=== PATIENT | female | born 1945 | race Caucasian/White ===

== ENCOUNTER → 2017-04-08 | Outpatient (CLI) | payer MEDICARE, OTHER ==
[2017-04-11 00:08] LABS: QUANTIFERON GOLD TB Negative (Negative); TB Test (QFT) Antigen 0.01 IU/mL (.); TB Test (QFT) Mitogen >10.00 IU/mL (.); TB Test (QFT) Nil 0.01 IU/mL (.)
== END ==
LOC: M SMT 11:28
DX: R04.2 Hemoptysis (principal)
CPT/HCPCS: 36415

== ENCOUNTER → 2017-05-22 | Outpatient (CLI) | payer MEDICARE, OTHER | LOC: M RAD 07:47 | DX: R91.8 Other nonspecific abnormal finding of lung field (principal) | CPT/HCPCS: 71250 ==

== ENCOUNTER → 2017-06-19 | Outpatient (CLI) | payer MEDICARE, OTHER ==
[~2017-06-19] MED LIST: ACETAMINOPHEN 325 MG TAB As Ordered; LIDOCAINE 1% MDV 20ML VIAL As Ordered
== END ==
LOC: M RADPRO 08:20
DX: J98.4 Other disorders of lung (principal)
CPT/HCPCS: 32405

== ENCOUNTER → 2017-07-22 | Outpatient (CLI) | payer MEDICARE, OTHER | LOC: M RAD 08:44 | DX: R91.8 Other nonspecific abnormal finding of lung field (principal) | CPT/HCPCS: 71250 ==

== ENCOUNTER → 2017-08-06 | Outpatient (CLI) | payer MEDICARE, OTHER ==
[2017-08-06 18:21] LABS: PROTHROMBIN TIME 33.4 SECONDS (12.4-14.5)
[2017-08-06 18:22] LABS: PARTIAL THROMBOPLASTIN TIME 47.7 SECONDS (26.8-37.9)
== END ==
LOC: M SMT 13:03
DX: Z79.01 Long term (current) use of anticoagulants (principal); R91.8 Other nonspecific abnormal finding of lung field
CPT/HCPCS: 85610

== ENCOUNTER → 2017-08-19 | Outpatient (CLI) | payer MEDICARE, OTHER ==
[2017-08-19 13:15] LABS: INR 1.26; PROTHROMBIN TIME 16.1 SECONDS (12.4-14.5)
[2017-08-19 13:16] LABS: PARTIAL THROMBOPLASTIN TIME 36.1 SECONDS (26.8-37.9)
== END ==
LOC: M SMT 09:18
DX: Z01.812 Encounter for preprocedural laboratory examination (principal); Z79.01 Long term (current) use of anticoagulants
CPT/HCPCS: 85610

== ENCOUNTER 2017-08-20 06:09 | Day surgery (SDC) | payer MEDICARE, OTHER ==
[2017-08-20 07:01] LABS: INR 1.15; PROTHROMBIN TIME 14.9 SECONDS (12.4-14.5)
[2017-08-20] MEDS ORDERED: fentaNYL 100 MCG/2 ML INJECTION (J3010) As Ordered (07:03)
[2017-08-20] MEDS ORDERED: dexameTHASONE 4 MG/ML 1ML VIAL (J1100) As Ordered (07:03)
[2017-08-20] MEDS ORDERED: ROCURONIUM BROMIDE 50 MG/5 ML VIAL As Ordered (07:03)
[2017-08-20] MEDS ORDERED: PROPOFOL 200 MG/20 ML VIAL As Ordered (07:03)
[2017-08-20] MEDS ORDERED: ONDANSETRON 4MG/2ML VIAL (J2405) As Ordered (07:03)
[2017-08-20] MEDS ORDERED: LIDOCAINE 2% INJ 100 MG/5 ML SDV (FOR ANES.) As Ordered (07:03)
[2017-08-20] MEDS ORDERED: MIDAZOLAM INJ 2 MG/2 ML VIAL (J2250) As Ordered (07:04)
[2017-08-20] MEDS ORDERED: GLYCOPYRROLATE INJ 0.2 MG/ML 2 ML VIAL As Ordered (07:05)
[2017-08-20] MEDS ORDERED: NEOSTIGMINE 10 MG/10 ML VIAL (J2710) As Ordered (07:05)
[2017-08-20] MEDS ORDERED: KETOROLAC 60 MG/2 ML VIAL (J1885) As Ordered (07:11)
[2017-08-20] MEDS: LR 1,000 ML IV (07:19)
[2017-08-20 07:21] LABS: BEDSIDE GLUCOSE 167 MG/DL (80-115)
[2017-08-20] MEDS: CETACAINE SPRAY 5GM As Ordered (07:59)
[2017-08-20] MEDS: THROMBIN SOLN 5,000 UNITS VIAL As Ordered (08:41)
[2017-08-20] MEDS: LIDOCAINE VISCOUS 2% SOLN 15ML UDC As Ordered (08:42)
[2017-08-20] MEDS: LIDOCAINE 4% TOPICAL SOLN 50 ML BTL As Ordered (08:42)
[2017-08-20] MEDS: EPINEPHrine 1MG/10ML SYRINGE 1.5IN As Ordered (08:42)
[2017-08-20] MEDS: LIDOCAINE 1% SDV INJ 30 ML VIAL As Ordered (08:42)
[2017-08-20] MEDS ORDERED: PERCOCET 5MG/325MG TAB PO (09:00)
[2017-08-20] MEDS ORDERED: fentaNYL 100 MCG/2 ML INJECTION (J3010) IV (09:00)
[2017-08-20] MEDS ORDERED: LR 1,000 ML IV (09:00)
[2017-08-20] MEDS ORDERED: ONDANSETRON 4MG/2ML VIAL (J2405) IV (09:00)
== END 2017-08-20 10:24 | disposition home or self-care (01) ==
LOC: M SDC 06:09
DX: R91.1 Solitary pulmonary nodule (principal); R04.2 Hemoptysis; I10 Essential (primary) hypertension; M12.9 Arthropathy, unspecified; E03.9 Hypothyroidism, unspecified; E78.5 Hyperlipidemia, unspecified; M48.00 Spinal stenosis, site unspecified; E55.9 Vitamin D deficiency, unspecified; K21.9 Gastro-esophageal reflux disease without esophagitis; E11.9 Type 2 diabetes mellitus without complications; I83.93 Asymptomatic varicose veins of bilateral lower extremities; I49.9 Cardiac arrhythmia, unspecified; R06.02 Shortness of breath; Z88.1 Allergy status to other antibiotic agents; Z88.5 Allergy status to narcotic agent; Z88.6 Allergy status to analgesic agent; Z88.8 Allergy status to other drugs, medicaments and biological substances; Z79.899 Other long term (current) drug therapy; Z79.82 Long term (current) use of aspirin; Z79.84 Long term (current) use of oral hypoglycemic drugs; Z79.01 Long term (current) use of anticoagulants; Z86.718 Personal history of other venous thrombosis and embolism; Z90.710 Acquired absence of both cervix and uterus; Z96.651 Presence of right artificial knee joint; Z95.0 Presence of cardiac pacemaker; Z98.51 Tubal ligation status
CPT/HCPCS: 31629

== ENCOUNTER → 2017-09-22 | Outpatient (CLI) | payer MEDICARE, OTHER | LOC: M PLARAD 11:53 | DX: C34.11 Malignant neoplasm of upper lobe, right bronchus or lung (principal) | CPT/HCPCS: 78815 ==

== ENCOUNTER → 2017-10-28 | Outpatient (CLI) | payer MEDICARE, OTHER | LOC: M RAD 06:52 | DX: R91.1 Solitary pulmonary nodule (principal); R91.8 Other nonspecific abnormal finding of lung field; Z95.0 Presence of cardiac pacemaker; K76.9 Liver disease, unspecified | CPT/HCPCS: 71046 ==

== ENCOUNTER → 2017-10-28 | Outpatient (CLI) | payer MEDICARE, OTHER ==
[2017-10-28 10:07] LABS: ABG BASE EXCESS 0.2 (-2.0-2.0); ABG DEVICE ROOM AIR; ABG HCO3 23.3 MEQ/L (22.0-26.0); ABG PARTIAL PRESSURE CO2 33.8 mmHg (35.0-45.0); ABG STANDARD HCO3 24.6 MEQ/L (22.0-26.0); ABG TOTAL CO2 24.4 MEQ/L (23.0-31.0); ABG pH (ARTERIAL) 7.457 UNITS (7.350-7.450)
[2017-10-28 10:11] LABS: HEMATOCRIT 45.7 % (36.0-47.0); MEAN CORPUSCULAR HEMOGLOBIN 27.5 pg (27.0-33.0); MEAN CORPUSCULAR HGB CONC 32.8 g/dl (32.0-36.5); MEAN CORPUSCULAR VOLUME 83.9 fl (80.0-96.0); PLATELET COUNT, AUTOMATED 201 10^3/uL (150-450); RED BLOOD COUNT 5.45 10^6/uL (4.00-5.40); WHITE BLOOD COUNT 6.7 10^3/uL (4.0-10.0)
[2017-10-28 10:17] LABS: APPEARANCE, URINE CLEAR (CLEAR); BACTERIA, URINE AUTO NEGATIVE (NEGATIVE); BILIRUBIN, URINE AUTO NEGATIVE (NEGATIVE); BLOOD, URINE BLOOD NEGATIVE (NEGATIVE); COLOR, URINE YELLOW (YELLOW); GLUCOSE, URINE (UA) AUTO NEGATIVE (NEGATIVE); KETONE, URINE AUTO NEGATIVE (NEGATIVE); LEUKOCYTE ESTERASE, URINE AUTO NEGATIVE (NEGATIVE); MUCUS, URINE SMALL (NEGATIVE); NITRITE, URINE AUTO NEGATIVE (NEGATIVE); PROTEIN, URINE AUTO NEGATIVE (NEGATIVE); RBC, URINE AUTO 3 /HPF (0-3); SPECIFIC GRAVITY URINE AUTO 1.017 (1.002-1.035); SQUAMOUS EPITHELIAL CELL UR AU 1 /HPF (0-6); UROBILINOGEN, URINE AUTO 0.2 mg/dL (0.0-2.0); WBC, URINE AUTO 1 /HPF (0-3)
[2017-10-28 10:25] LABS: INR 2.29; PROTHROMBIN TIME 25.7 SECONDS (12.1-14.4)
[2017-10-28 10:32] LABS: ANION GAP 10 MEQ/L (8-16); BLOOD UREA NITROGEN 16 MG/DL (7-18); CALCIUM LEVEL 9.1 MG/DL (8.8-10.2); CARBON DIOXIDE LEVEL 30 MEQ/L (21-32); CHLORIDE LEVEL 101 MEQ/L (98-107); CREATININE FOR GFR 0.82 MG/DL (0.55-1.30); GLOMERULAR FILTRATION RATE > 60.0 (>45); GLUCOSE, FASTING 159 MG/DL (70-100); POTASSIUM SERUM 3.6 MEQ/L (3.5-5.1); SODIUM LEVEL 141 MEQ/L (136-145)
== END ==
LOC: M ADMPAT 08:19
DX: R91.1 Solitary pulmonary nodule (principal); R91.8 Other nonspecific abnormal finding of lung field; Z95.0 Presence of cardiac pacemaker

== ENCOUNTER 2017-11-02 05:42 | Inpatient (IN) | payer MEDICARE, OTHER ==
[2017-11-02] MEDS: LR 1,000 ML IV ×2 (06:40→14:45)
[2017-11-02 06:47] LABS: PROTHROMBIN TIME 15.4 SECONDS (12.1-14.4)
[2017-11-02] MEDS ORDERED: MIDAZOLAM INJ 2 MG/2 ML VIAL (J2250) As Ordered ×2 (06:50→06:52)
[2017-11-02] MEDS ORDERED: fentaNYL 100 MCG/2 ML INJECTION (J3010) As Ordered ×5 (06:50→12:26)
[2017-11-02 06:51] LABS: BEDSIDE GLUCOSE 149 MG/DL (80-115)
[2017-11-02] MEDS ORDERED: ROCURONIUM BROMIDE 50 MG/5 ML VIAL As Ordered ×2 (06:52→09:27)
[2017-11-02] MEDS ORDERED: LIDOCAINE 2% INJ 100 MG/5 ML SDV (FOR ANES.) As Ordered (06:52)
[2017-11-02] MEDS ORDERED: PROPOFOL 200 MG/20 ML VIAL As Ordered (06:52)
[2017-11-02] MEDS: MIDAZOLAM INJ 2 MG/2 ML VIAL (J2250) IV (07:10)
[2017-11-02] MEDS: fentaNYL 100 MCG/2 ML INJECTION (J3010) IV (07:10)
[2017-11-02] MEDS: CETACAINE SPRAY 5GM As Ordered (07:48)
[2017-11-02] MEDS: MUPIROCIN 2% OINT 22 GM TUBE TOP (07:51)
[2017-11-02] MEDS ORDERED: fentaNYL 250 MCG/5 ML INJECTION (J3010) As Ordered (08:35)
[2017-11-02] MEDS ORDERED: dexameTHASONE 4 MG/ML 1ML VIAL (J1100) As Ordered ×2 (09:13)
[2017-11-02] MEDS ORDERED: ONDANSETRON 4MG/2ML VIAL (J2405) As Ordered (09:14)
[2017-11-02] MEDS ORDERED: EPIDURAL/PCA KEYS XX (09:30)
[2017-11-02] MEDS ORDERED: WALLBOXKEY XX (09:30)
[2017-11-02] MEDS ORDERED: ONDANSETRON 4MG/2ML VIAL (J2405) IV ×3 (09:30→14:45)
[2017-11-02] MEDS ORDERED: NALOXONE INJ 0.4 MG/1 ML VIAL (J2310) IV (09:30)
[2017-11-02] MEDS ORDERED: diphenhydrAMINE INJ 50MG/ML VIAL (J1200) IV (09:30)
[2017-11-02] MEDS ORDERED: METOCLOPRAMIDE INJ 10MG/2ML VIAL (J2765) IV (09:30)
[2017-11-02] MEDS ORDERED: DESFLURANE 240 ML INHALANT As Ordered (11:38)
[2017-11-02] MEDS ORDERED: BUPIVACAINE HCL 0.25% 30 ML VIAL As Ordered (12:16)
[2017-11-02] MEDS: BUPIVACAINE LIPOSOME/PF 1.3% 20 ML VIAL (13.3MG/ML)(EXPAREL) As Ordered (13:01)
[2017-11-02] MEDS: BUPIVACAINE HCL 0.5% 10 ML VIAL As Ordered (13:01)
[2017-11-02] MEDS ORDERED: GLUCOSE 4 GM CHEW TABLET PO (13:15)
[2017-11-02] MEDS ORDERED: GLUCAGON FOR INJ 1 MG VIAL (J1610) SC (13:15)
[2017-11-02] MEDS ORDERED: NORCO, ANEXSIA 5/325MG TABLET (HYDROcodone/ACETAMINOPHEN) PO (13:15)
[2017-11-02] MEDS ORDERED: DEXTROSE 50% 50 ML SYRINGE IV (13:15)
[2017-11-02] MEDS ORDERED: BISACODYL 10 MG SUPP PR (13:15)
[2017-11-02] MEDS: FENTANYL/BUPIVACAINE/NACL BAG 250 ML EPIDURAL (13:35)
[2017-11-02] MEDS: LEVALBUTEROL 1.25 MG/0.5 ML CONCENTRATE NEB NEB ×2 (13:35→20:02)
[2017-11-02 13:46] LABS: ABG BASE EXCESS -4.2 (-2.0-2.0); ABG O2 SATURATION 98.1 % (95.0-99.0); ABG PARTIAL PRESSURE CO2 44.2 mmHg (35.0-45.0); ABG PARTIAL PRESSURE O2 111.4 mmHg (75.0-100.0); ABG STANDARD HCO3 21.1 MEQ/L (22.0-26.0); ABG TOTAL CO2 23.4 MEQ/L (23.0-31.0); ABG pH (ARTERIAL) 7.315 UNITS (7.350-7.450)
[2017-11-02 13:48] LABS: BASO # 0.1 10^3/uL (0.0-0.2); BASO % 0.3 % (0.0-1.0); EOS % 0.1 % (0.0-3.0); HEMOGLOBIN 14.8 g/dl (12.0-15.5); IMMATURE GRANULOCYTE % 0.9 % (0-3.0); LYMPH # 0.9 10^3/uL (1.5-4.5); LYMPH % 5.6 % (24.0-44.0); MEAN CORPUSCULAR HEMOGLOBIN 27.5 pg (27.0-33.0); MEAN CORPUSCULAR HGB CONC 32.2 g/dl (32.0-36.5); MEAN CORPUSCULAR VOLUME 85.5 fl (80.0-96.0); MONO # 0.5 10^3/uL (0.0-0.8); MONO % 3.2 % (0.0-5.0); NEUTROPHILS # 14.5 10^3/uL (1.8-7.7); NEUTROPHILS % 89.9 % (36.0-66.0); PLATELET COUNT, AUTOMATED 204 10^3/uL (150-450); RED BLOOD COUNT 5.38 10^6/uL (4.00-5.40); RED CELL DISTRIBUTION WIDTH 16.1 % (11.5-14.5); WHITE BLOOD COUNT 16.1 10^3/uL (4.0-10.0)
[2017-11-02] MEDS ORDERED: KETOROLAC 30 MG/ML VIAL (J1885) As Ordered (13:55)
[2017-11-02] MEDS: KETOROLAC 30 MG/ML VIAL (J1885) IV ×2 (14:05→19:52)
[2017-11-02 14:10] LABS: BEDSIDE GLUCOSE 239 MG/DL (80-115)
[2017-11-02] MEDS ORDERED: HumaLOG INSULIN (NovoLOG) PER UNIT As Ordered (14:11)
[2017-11-02] MEDS: HumaLOG INSULIN (NovoLOG) PER UNIT SC ×2 (14:12→17:54)
[2017-11-02 14:16] LABS: ANION GAP 11 MEQ/L (8-16); BLOOD UREA NITROGEN 19 MG/DL (7-18); CALCIUM LEVEL 8.5 MG/DL (8.8-10.2); CARBON DIOXIDE LEVEL 24 MEQ/L (21-32); CHLORIDE LEVEL 104 MEQ/L (98-107); CREATININE FOR GFR 0.88 MG/DL (0.55-1.30); GLOMERULAR FILTRATION RATE > 60.0 (>45); GLUCOSE, FASTING 221 MG/DL (70-100); POTASSIUM SERUM 4.5 MEQ/L (3.5-5.1); SODIUM LEVEL 139 MEQ/L (136-145)
[2017-11-02] MEDS: KCL 20MEQ IN D5/NS 1000ML 1,000 ML IV (14:40)
[2017-11-02] MEDS ORDERED: fentaNYL 100 MCG/2 ML INJECTION (J3010) IV (14:45)
[2017-11-02] MEDS ORDERED: LEVALBUTEROL 1.25 MG/0.5 ML CONCENTRATE NEB As Ordered (16:16)
[2017-11-02] MEDS: ceFAZolin SOD 1 GM in D5W MINI-BAG PLUS 50 ML IV ×2 (16:21→23:09)
[2017-11-02 17:50] LABS: BEDSIDE GLUCOSE 225 MG/DL (80-115)
[2017-11-02] MEDS ORDERED: metFORMIN (GLUCOPHAGE) 500 MG TAB PO (18:00)
[2017-11-02] MEDS: HEPARIN SOD (PORCINE) 5000 UNITS/ML VIAL SC (20:17)
[2017-11-02] MEDS: DOCUSATE SODIUM 100 MG CAP PO (20:17)
[2017-11-02] MEDS: METOPROLOL TART 25 MG TABLET PO (20:18)
[2017-11-02 20:59] LABS: BEDSIDE GLUCOSE 208 MG/DL (80-115)
[2017-11-03] MEDS: KETOROLAC 30 MG/ML VIAL (J1885) IV ×4 (01:14→20:55)
[2017-11-03] MEDS: LEVALBUTEROL 1.25 MG/0.5 ML CONCENTRATE NEB NEB ×4 (02:48→18:18)
[2017-11-03] MEDS: KCL 20MEQ IN D5/NS 1000ML 1,000 ML IV (03:09)
[2017-11-03 04:34] LABS: BASO % 0.2 % (0.0-1.0); EOS % 0.3 % (0.0-3.0); HEMATOCRIT 41.1 % (36.0-47.0); IMMATURE GRANULOCYTE % 0.5 % (0-3.0); LYMPH # 1.4 10^3/uL (1.5-4.5); LYMPH % 12.9 % (24.0-44.0); MEAN CORPUSCULAR HEMOGLOBIN 27.4 pg (27.0-33.0); MEAN CORPUSCULAR HGB CONC 31.6 g/dl (32.0-36.5); MEAN CORPUSCULAR VOLUME 86.7 fl (80.0-96.0); MONO # 1.1 10^3/uL (0.0-0.8); MONO % 10.2 % (0.0-5.0); NEUTROPHILS # 8.4 10^3/uL (1.8-7.7); NEUTROPHILS % 75.9 % (36.0-66.0); PLATELET COUNT, AUTOMATED 177 10^3/uL (150-450); RED BLOOD COUNT 4.74 10^6/uL (4.00-5.40); RED CELL DISTRIBUTION WIDTH 16.1 % (11.5-14.5)
[2017-11-03 04:47] LABS: ANION GAP 8 MEQ/L (8-16); BLOOD UREA NITROGEN 27 MG/DL (7-18); CALCIUM LEVEL 7.9 MG/DL (8.8-10.2); CARBON DIOXIDE LEVEL 26 MEQ/L (21-32); CHLORIDE LEVEL 107 MEQ/L (98-107); CREATININE FOR GFR 0.74 MG/DL (0.55-1.30); GLOMERULAR FILTRATION RATE > 60.0 (>45); GLUCOSE, FASTING 150 MG/DL (70-100); POTASSIUM SERUM 4.2 MEQ/L (3.5-5.1); SODIUM LEVEL 141 MEQ/L (136-145)
[2017-11-03] MEDS: LEVOTHYROXINE 75MCG TABLET (0.075MG) PO (05:29)
[2017-11-03 05:57] LABS: ABG BASE EXCESS -1.5 (-2.0-2.0); ABG HCO3 23.5 MEQ/L (22.0-26.0); ABG O2 SATURATION 96.7 % (95.0-99.0); ABG PARTIAL PRESSURE CO2 40.4 mmHg (35.0-45.0); ABG PARTIAL PRESSURE O2 85.5 mmHg (75.0-100.0); ABG STANDARD HCO3 23.2 MEQ/L (22.0-26.0); ABG TOTAL CO2 24.7 MEQ/L (23.0-31.0); ABG pH (ARTERIAL) 7.382 UNITS (7.350-7.450)
[2017-11-03 08:40] LABS: BEDSIDE GLUCOSE 128 MG/DL (80-115)
[2017-11-03] MEDS: HEPARIN SOD (PORCINE) 5000 UNITS/ML VIAL SC ×2 (08:50→20:57)
[2017-11-03] MEDS: HumaLOG INSULIN (NovoLOG) PER UNIT SC ×3 (08:50→17:16)
[2017-11-03] MEDS: ceFAZolin SOD 1 GM in D5W MINI-BAG PLUS 50 ML IV ×2 (08:50→15:43)
[2017-11-03] MEDS: MOM 30ML SUSPENSION UDC PO (08:50)
[2017-11-03] MEDS: METOPROLOL TART 25 MG TABLET PO ×2 (08:51→20:58)
[2017-11-03] MEDS: PANTOPRAZOLE 40MG TAB (PROTONIX) PO (08:51)
[2017-11-03] MEDS: DOCUSATE SODIUM 100 MG CAP PO ×2 (08:51→20:57)
[2017-11-03] MEDS: POTASSIUM CHLORIDE 10 MEQ SR TABLET PO (08:52)
[2017-11-03] MEDS: ASPIRIN 81 MG ENTERIC TAB PO (08:52)
[2017-11-03] MEDS: metFORMIN (GLUCOPHAGE) 500 MG TAB PO ×2 (08:52→17:16)
[2017-11-03 12:18] LABS: BEDSIDE GLUCOSE 156 MG/DL (80-115)
[2017-11-03] MEDS: FENTANYL/BUPIVACAINE/NACL BAG 250 ML EPIDURAL (14:22)
[2017-11-03 17:14] LABS: BEDSIDE GLUCOSE 165 MG/DL (80-115)
[2017-11-03] MEDS: ACETAMINOPHEN TAB 650MG DOSE (2X325MG) PO (20:57)
[2017-11-04] MEDS: ceFAZolin SOD 1 GM in D5W MINI-BAG PLUS 50 ML IV ×2 (00:30→09:08)
[2017-11-04] MEDS: LEVALBUTEROL 1.25 MG/0.5 ML CONCENTRATE NEB NEB ×5 (02:00→20:38)
[2017-11-04] MEDS: KETOROLAC 30 MG/ML VIAL (J1885) IV ×4 (02:45→20:53)
[2017-11-04 05:11] LABS: BASO % 0.4 % (0.0-1.0); EOS # 0.2 10^3/uL (0.0-0.50); HEMATOCRIT 39.9 % (36.0-47.0); HEMOGLOBIN 12.5 g/dl (12.0-15.5); IMMATURE GRANULOCYTE % 0.5 % (0-3.0); LYMPH # 1.9 10^3/uL (1.5-4.5); LYMPH % 19.5 % (24.0-44.0); MEAN CORPUSCULAR HEMOGLOBIN 27.7 pg (27.0-33.0); MEAN CORPUSCULAR HGB CONC 31.3 g/dl (32.0-36.5); MEAN CORPUSCULAR VOLUME 88.5 fl (80.0-96.0); MONO # 1.1 10^3/uL (0.0-0.8); MONO % 11.1 % (0.0-5.0); NEUTROPHILS # 6.5 10^3/uL (1.8-7.7); NEUTROPHILS % 66.5 % (36.0-66.0); PLATELET COUNT, AUTOMATED 132 10^3/uL (150-450); RED BLOOD COUNT 4.51 10^6/uL (4.00-5.40); RED CELL DISTRIBUTION WIDTH 16.5 % (11.5-14.5); WHITE BLOOD COUNT 9.8 10^3/uL (4.0-10.0)
[2017-11-04 05:26] LABS: ANION GAP 7 MEQ/L (8-16); BLOOD UREA NITROGEN 26 MG/DL (7-18); CALCIUM LEVEL 7.8 MG/DL (8.8-10.2); CARBON DIOXIDE LEVEL 28 MEQ/L (21-32); CHLORIDE LEVEL 105 MEQ/L (98-107); GLOMERULAR FILTRATION RATE > 60.0 (>45); GLUCOSE, FASTING 138 MG/DL (70-100); POTASSIUM SERUM 4.4 MEQ/L (3.5-5.1); SODIUM LEVEL 140 MEQ/L (136-145)
[2017-11-04] MEDS: LEVOTHYROXINE 75MCG TABLET (0.075MG) PO (05:57)
[2017-11-04] MEDS: ASPIRIN 81 MG ENTERIC TAB PO (09:06)
[2017-11-04] MEDS: DOCUSATE SODIUM 100 MG CAP PO ×2 (09:06→20:53)
[2017-11-04] MEDS: HumaLOG INSULIN (NovoLOG) PER UNIT SC ×3 (09:09→17:51)
[2017-11-04] MEDS: HEPARIN SOD (PORCINE) 5000 UNITS/ML VIAL SC ×2 (09:09→20:53)
[2017-11-04] MEDS: MOM 30ML SUSPENSION UDC PO (09:28)
[2017-11-04] MEDS: metFORMIN (GLUCOPHAGE) 500 MG TAB PO ×2 (09:29→17:52)
[2017-11-04] MEDS: PANTOPRAZOLE 40MG TAB (PROTONIX) PO (09:29)
[2017-11-04] MEDS: METOPROLOL TART 25 MG TABLET PO ×2 (09:29→20:54)
[2017-11-04] MEDS: POTASSIUM CHLORIDE 10 MEQ SR TABLET PO (09:29)
[2017-11-04] MEDS: FUROSEMIDE 40 MG/4 ML VIAL (J1940) IV (10:29)
[2017-11-04 11:40] LABS: BEDSIDE GLUCOSE 188 MG/DL (80-115)
[2017-11-04] MEDS: FENTANYL/BUPIVACAINE/NACL BAG 250 ML EPIDURAL (15:05)
[2017-11-04 16:45] LABS: BEDSIDE GLUCOSE 150 MG/DL (80-115)
[2017-11-05] MEDS: LEVALBUTEROL 1.25 MG/0.5 ML CONCENTRATE NEB NEB ×6 (02:00→21:10)
[2017-11-05] MEDS: KETOROLAC 30 MG/ML VIAL (J1885) IV ×4 (02:28→21:01)
[2017-11-05 05:39] LABS: BASO % 0.5 % (0.0-1.0); EOS # 0.3 10^3/uL (0.0-0.50); EOS % 3.1 % (0.0-3.0); HEMOGLOBIN 12.6 g/dl (12.0-15.5); IMMATURE GRANULOCYTE % 0.8 % (0-3.0); LYMPH # 1.7 10^3/uL (1.5-4.5); LYMPH % 20.3 % (24.0-44.0); MEAN CORPUSCULAR HEMOGLOBIN 27.2 pg (27.0-33.0); MEAN CORPUSCULAR HGB CONC 30.7 g/dl (32.0-36.5); MEAN CORPUSCULAR VOLUME 88.4 fl (80.0-96.0); MONO % 11.5 % (0.0-5.0); NEUTROPHILS # 5.4 10^3/uL (1.8-7.7); NEUTROPHILS % 63.8 % (36.0-66.0); PLATELET COUNT, AUTOMATED 156 10^3/uL (150-450); RED BLOOD COUNT 4.64 10^6/uL (4.00-5.40); RED CELL DISTRIBUTION WIDTH 16.5 % (11.5-14.5); WHITE BLOOD COUNT 8.4 10^3/uL (4.0-10.0)
[2017-11-05 05:50] LABS: ANION GAP 6 MEQ/L (8-16); BLOOD UREA NITROGEN 28 MG/DL (7-18); CARBON DIOXIDE LEVEL 30 MEQ/L (21-32); CHLORIDE LEVEL 105 MEQ/L (98-107); CREATININE FOR GFR 0.65 MG/DL (0.55-1.30); GLOMERULAR FILTRATION RATE > 60.0 (>45); GLUCOSE, FASTING 116 MG/DL (70-100); POTASSIUM SERUM 4.5 MEQ/L (3.5-5.1); SODIUM LEVEL 141 MEQ/L (136-145)
[2017-11-05] MEDS: LEVOTHYROXINE 75MCG TABLET (0.075MG) PO (06:08)
[2017-11-05] MEDS: HumaLOG INSULIN (NovoLOG) PER UNIT SC ×3 (09:15→17:26)
[2017-11-05] MEDS: HEPARIN SOD (PORCINE) 5000 UNITS/ML VIAL SC ×2 (09:16→21:01)
[2017-11-05] MEDS: MOM 30ML SUSPENSION UDC PO (09:19)
[2017-11-05] MEDS: DOCUSATE SODIUM 100 MG CAP PO ×2 (09:20→21:00)
[2017-11-05] MEDS: ASPIRIN 81 MG ENTERIC TAB PO (09:21)
[2017-11-05] MEDS: METOPROLOL TART 25 MG TABLET PO ×2 (09:21→21:01)
[2017-11-05] MEDS: POTASSIUM CHLORIDE 10 MEQ SR TABLET PO (09:21)
[2017-11-05] MEDS: metFORMIN (GLUCOPHAGE) 500 MG TAB PO ×2 (09:21→17:26)
[2017-11-05] MEDS: PANTOPRAZOLE 40MG TAB (PROTONIX) PO (09:21)
[2017-11-05] MEDS: FUROSEMIDE 40 MG/4 ML VIAL (J1940) IV (11:09)
[2017-11-05 11:43] LABS: BEDSIDE GLUCOSE 148 MG/DL (80-115)
[2017-11-05] MEDS: FENTANYL/BUPIVACAINE/NACL BAG 250 ML EPIDURAL (15:20)
[2017-11-05 17:12] LABS: BEDSIDE GLUCOSE 143 MG/DL (80-115)
[2017-11-05 20:08] LABS: BEDSIDE GLUCOSE 156 MG/DL (80-115)
[2017-11-06] MEDS: LEVALBUTEROL 1.25 MG/0.5 ML CONCENTRATE NEB NEB ×4 (01:42→20:00)
[2017-11-06] MEDS: KETOROLAC 30 MG/ML VIAL (J1885) IV ×4 (02:15→20:40)
[2017-11-06] MEDS: LEVOTHYROXINE 75MCG TABLET (0.075MG) PO (05:36)
[2017-11-06] MEDS: FUROSEMIDE 40 MG/4 ML VIAL (J1940) IV (05:37)
[2017-11-06 05:54] LABS: BASO % 0.5 % (0.0-1.0); EOS # 0.4 10^3/uL (0.0-0.50); EOS % 4.3 % (0.0-3.0); HEMATOCRIT 40.5 % (36.0-47.0); HEMOGLOBIN 12.8 g/dl (12.0-15.5); IMMATURE GRANULOCYTE % 0.8 % (0-3.0); LYMPH # 1.5 10^3/uL (1.5-4.5); LYMPH % 18.3 % (24.0-44.0); MEAN CORPUSCULAR HEMOGLOBIN 27.4 pg (27.0-33.0); MEAN CORPUSCULAR HGB CONC 31.6 g/dl (32.0-36.5); MEAN CORPUSCULAR VOLUME 86.5 fl (80.0-96.0); MONO # 0.9 10^3/uL (0.0-0.8); MONO % 10.1 % (0.0-5.0); NEUTROPHILS # 5.5 10^3/uL (1.8-7.7); PLATELET COUNT, AUTOMATED 197 10^3/uL (150-450); RED BLOOD COUNT 4.68 10^6/uL (4.00-5.40); RED CELL DISTRIBUTION WIDTH 16.3 % (11.5-14.5); WHITE BLOOD COUNT 8.4 10^3/uL (4.0-10.0)
[2017-11-06 06:17] LABS: ANION GAP 7 MEQ/L (8-16); BLOOD UREA NITROGEN 29 MG/DL (7-18); CALCIUM LEVEL 8.1 MG/DL (8.8-10.2); CARBON DIOXIDE LEVEL 30 MEQ/L (21-32); CHLORIDE LEVEL 102 MEQ/L (98-107); CREATININE FOR GFR 0.64 MG/DL (0.55-1.30); GLOMERULAR FILTRATION RATE > 60.0 (>45); GLUCOSE, FASTING 124 MG/DL (70-100); POTASSIUM SERUM 4.6 MEQ/L (3.5-5.1); SODIUM LEVEL 139 MEQ/L (136-145)
[2017-11-06] MEDS: MOM 30ML SUSPENSION UDC PO (10:13)
[2017-11-06] MEDS: HumaLOG INSULIN (NovoLOG) PER UNIT SC ×3 (10:14→17:43)
[2017-11-06] MEDS: POTASSIUM CHLORIDE 10 MEQ SR TABLET PO (10:15)
[2017-11-06] MEDS: metFORMIN (GLUCOPHAGE) 500 MG TAB PO ×2 (10:15→17:43)
[2017-11-06] MEDS: ASPIRIN 81 MG ENTERIC TAB PO (10:15)
[2017-11-06] MEDS: DOCUSATE SODIUM 100 MG CAP PO ×2 (10:16→20:39)
[2017-11-06] MEDS: PANTOPRAZOLE 40MG TAB (PROTONIX) PO (10:16)
[2017-11-06] MEDS: HEPARIN SOD (PORCINE) 5000 UNITS/ML VIAL SC ×2 (10:16→20:40)
[2017-11-06] MEDS: METOPROLOL TART 25 MG TABLET PO ×2 (10:18→20:40)
[2017-11-06 12:19] LABS: BEDSIDE GLUCOSE 135 MG/DL (80-115)
[2017-11-06] MEDS: FENTANYL/BUPIVACAINE/NACL BAG 250 ML EPIDURAL (16:19)
[2017-11-06 17:10] LABS: BEDSIDE GLUCOSE 152 MG/DL (80-115)
[2017-11-07] MEDS: LEVALBUTEROL 1.25 MG/0.5 ML CONCENTRATE NEB NEB ×4 (02:00→20:38)
[2017-11-07] MEDS: KETOROLAC 30 MG/ML VIAL (J1885) IV ×3 (02:15→13:10)
[2017-11-07 05:25] LABS: BASO # 0.1 10^3/uL (0.0-0.2); BASO % 0.8 % (0.0-1.0); EOS # 0.3 10^3/uL (0.0-0.50); EOS % 4.5 % (0.0-3.0); HEMATOCRIT 42.8 % (36.0-47.0); HEMOGLOBIN 13.3 g/dl (12.0-15.5); IMMATURE GRANULOCYTE % 1.1 % (0-3.0); LYMPH # 1.3 10^3/uL (1.5-4.5); LYMPH % 18.8 % (24.0-44.0); MEAN CORPUSCULAR HEMOGLOBIN 27.3 pg (27.0-33.0); MEAN CORPUSCULAR HGB CONC 31.1 g/dl (32.0-36.5); MEAN CORPUSCULAR VOLUME 87.9 fl (80.0-96.0); MONO # 0.7 10^3/uL (0.0-0.8); MONO % 10.1 % (0.0-5.0); NEUTROPHILS # 4.6 10^3/uL (1.8-7.7); NEUTROPHILS % 64.7 % (36.0-66.0); PLATELET COUNT, AUTOMATED 204 10^3/uL (150-450); RED BLOOD COUNT 4.87 10^6/uL (4.00-5.40); RED CELL DISTRIBUTION WIDTH 16.1 % (11.5-14.5); WHITE BLOOD COUNT 7.1 10^3/uL (4.0-10.0)
[2017-11-07 05:38] LABS: ANION GAP 8 MEQ/L (8-16); BLOOD UREA NITROGEN 30 MG/DL (7-18); CARBON DIOXIDE LEVEL 29 MEQ/L (21-32); CHLORIDE LEVEL 103 MEQ/L (98-107); CREATININE FOR GFR 0.75 MG/DL (0.55-1.30); GLOMERULAR FILTRATION RATE > 60.0 (>45); GLUCOSE, FASTING 162 MG/DL (70-100); POTASSIUM SERUM 4.4 MEQ/L (3.5-5.1); SODIUM LEVEL 140 MEQ/L (136-145)
[2017-11-07] MEDS: LEVOTHYROXINE 75MCG TABLET (0.075MG) PO (06:31)
[2017-11-07] MEDS: HEPARIN SOD (PORCINE) 5000 UNITS/ML VIAL SC ×2 (08:59→21:20)
[2017-11-07] MEDS: MOM 30ML SUSPENSION UDC PO (08:59)
[2017-11-07] MEDS: metFORMIN (GLUCOPHAGE) 500 MG TAB PO ×2 (09:00→17:48)
[2017-11-07] MEDS: HumaLOG INSULIN (NovoLOG) PER UNIT SC ×3 (09:00→17:49)
[2017-11-07] MEDS: DOCUSATE SODIUM 100 MG CAP PO ×2 (09:00→21:00)
[2017-11-07] MEDS: PANTOPRAZOLE 40MG TAB (PROTONIX) PO (09:00)
[2017-11-07] MEDS: ASPIRIN 81 MG ENTERIC TAB PO (09:00)
[2017-11-07] MEDS: POTASSIUM CHLORIDE 10 MEQ SR TABLET PO (09:00)
[2017-11-07] MEDS: METOPROLOL TART 25 MG TABLET PO ×2 (09:02→21:20)
[2017-11-07 11:51] LABS: BEDSIDE GLUCOSE 116 MG/DL (80-115)
[2017-11-07] MEDS: ACETAMINOPHEN TAB 650MG DOSE (2X325MG) PO (14:40)
[2017-11-07] MEDS: FENTANYL/BUPIVACAINE/NACL BAG 250 ML EPIDURAL (15:20)
[2017-11-07 17:45] LABS: BEDSIDE GLUCOSE 139 MG/DL (80-115)
[2017-11-08] MEDS: LEVALBUTEROL 1.25 MG/0.5 ML CONCENTRATE NEB NEB ×4 (02:00→20:07)
[2017-11-08 05:45] LABS: BASO # 0.1 10^3/uL (0.0-0.2); BASO % 0.6 % (0.0-1.0); EOS # 0.3 10^3/uL (0.0-0.50); EOS % 3.8 % (0.0-3.0); HEMATOCRIT 42.1 % (36.0-47.0); HEMOGLOBIN 13.6 g/dl (12.0-15.5); IMMATURE GRANULOCYTE % 1.4 % (0-3.0); LYMPH # 1.5 10^3/uL (1.5-4.5); LYMPH % 19.2 % (24.0-44.0); MEAN CORPUSCULAR HEMOGLOBIN 27.5 pg (27.0-33.0); MEAN CORPUSCULAR HGB CONC 32.3 g/dl (32.0-36.5); MEAN CORPUSCULAR VOLUME 85.2 fl (80.0-96.0); MONO # 0.8 10^3/uL (0.0-0.8); MONO % 10.9 % (0.0-5.0); NEUTROPHILS # 4.9 10^3/uL (1.8-7.7); NEUTROPHILS % 64.1 % (36.0-66.0); PLATELET COUNT, AUTOMATED 216 10^3/uL (150-450); RED BLOOD COUNT 4.94 10^6/uL (4.00-5.40); RED CELL DISTRIBUTION WIDTH 16.2 % (11.5-14.5); WHITE BLOOD COUNT 7.7 10^3/uL (4.0-10.0)
[2017-11-08 05:59] LABS: ANION GAP 9 MEQ/L (8-16); BLOOD UREA NITROGEN 23 MG/DL (7-18); CALCIUM LEVEL 8.2 MG/DL (8.8-10.2); CARBON DIOXIDE LEVEL 26 MEQ/L (21-32); CHLORIDE LEVEL 104 MEQ/L (98-107); CREATININE FOR GFR 0.67 MG/DL (0.55-1.30); GLOMERULAR FILTRATION RATE > 60.0 (>45); GLUCOSE, FASTING 154 MG/DL (70-100); POTASSIUM SERUM 4.4 MEQ/L (3.5-5.1); SODIUM LEVEL 139 MEQ/L (136-145)
[2017-11-08] MEDS: LEVOTHYROXINE 75MCG TABLET (0.075MG) PO (06:14)
[2017-11-08] MEDS: MOM 30ML SUSPENSION UDC PO ×2 (07:34→07:43)
[2017-11-08] MEDS: HEPARIN SOD (PORCINE) 5000 UNITS/ML VIAL SC ×2 (07:35→20:33)
[2017-11-08] MEDS: HumaLOG INSULIN (NovoLOG) PER UNIT SC ×3 (07:35→17:30)
[2017-11-08] MEDS: metFORMIN (GLUCOPHAGE) 500 MG TAB PO ×2 (07:35→17:29)
[2017-11-08] MEDS: ASPIRIN 81 MG ENTERIC TAB PO (07:36)
[2017-11-08] MEDS: DOCUSATE SODIUM 100 MG CAP PO ×2 (07:36→20:33)
[2017-11-08] MEDS: PANTOPRAZOLE 40MG TAB (PROTONIX) PO (07:36)
[2017-11-08] MEDS: POTASSIUM CHLORIDE 10 MEQ SR TABLET PO (07:36)
[2017-11-08] MEDS: METOPROLOL TART 25 MG TABLET PO ×2 (07:40→20:33)
[2017-11-08 11:34] LABS: BEDSIDE GLUCOSE 98 MG/DL (80-115)
[2017-11-08] MEDS: ACETAMINOPHEN TAB 650MG DOSE (2X325MG) PO (12:58)
[2017-11-08 16:41] LABS: BEDSIDE GLUCOSE 139 MG/DL (80-115)
[2017-11-08] MEDS: PERCOCET 5MG/325MG TAB PO ×2 (17:03→20:32)
[2017-11-08] MEDS: FUROSEMIDE 40 MG/4 ML VIAL (J1940) IV (23:00)
[2017-11-09] MEDS: PERCOCET 5MG/325MG TAB PO ×3 (00:46→10:18)
[2017-11-09] MEDS: LEVALBUTEROL 1.25 MG/0.5 ML CONCENTRATE NEB NEB ×2 (02:00→08:00)
[2017-11-09] MEDS: LEVOTHYROXINE 75MCG TABLET (0.075MG) PO (05:41)
[2017-11-09] MEDS: HumaLOG INSULIN (NovoLOG) PER UNIT SC ×2 (08:54→12:02)
[2017-11-09] MEDS: DOCUSATE SODIUM 100 MG CAP PO (08:54)
[2017-11-09] MEDS: ASPIRIN 81 MG ENTERIC TAB PO (08:54)
[2017-11-09] MEDS: metFORMIN (GLUCOPHAGE) 500 MG TAB PO (08:54)
[2017-11-09] MEDS: PANTOPRAZOLE 40MG TAB (PROTONIX) PO (08:54)
[2017-11-09] MEDS: MOM 30ML SUSPENSION UDC PO (08:55)
[2017-11-09] MEDS: METOPROLOL TART 25 MG TABLET PO (08:55)
[2017-11-09] MEDS: HEPARIN SOD (PORCINE) 5000 UNITS/ML VIAL SC (08:55)
[2017-11-09] MEDS: POTASSIUM CHLORIDE 10 MEQ SR TABLET PO (08:55)
[2017-11-09] MEDS ORDERED: SLF 3 ML SYR IV ×2 (09:00→14:00)
== END 2017-11-09 12:37 | disposition home or self-care (01) | DRG 164 ==
LOC: M OR 05:42 → M PCU 11-04 13:10 → M ICU 14:57 → M PCU 11-04 13:15
PROC: 0BBC0ZZ Excision of Right Upper Lung Lobe, Open Approach (ICD-10-PCS; principal; 2017-11-02 07:30)
PROC: 07B70ZX Excision of Thorax Lymphatic, Open Approach, Diagnostic (ICD-10-PCS; 2017-11-02 07:30)
DX: C34.11 Malignant neoplasm of upper lobe, right bronchus or lung (principal); J95.812 Postprocedural air leak; E11.9 Type 2 diabetes mellitus without complications; I10 Essential (primary) hypertension; E03.9 Hypothyroidism, unspecified; Z79.82 Long term (current) use of aspirin; Z79.84 Long term (current) use of oral hypoglycemic drugs; Z79.01 Long term (current) use of anticoagulants; Z79.899 Other long term (current) drug therapy; Z88.2 Allergy status to sulfonamides; Z88.5 Allergy status to narcotic agent; Z88.8 Allergy status to other drugs, medicaments and biological substances; Z88.1 Allergy status to other antibiotic agents; Z86.718 Personal history of other venous thrombosis and embolism; Z96.651 Presence of right artificial knee joint

== ENCOUNTER 2017-11-12 02:35 | Inpatient (IN) | payer MEDICARE, OTHER ==
[2017-11-12 03:34] LABS: BASO # 0.1 10^3/uL (0.0-0.2); BASO % 0.4 % (0.0-1.0); EOS # 0.1 10^3/uL (0.0-0.50); EOS % 0.6 % (0.0-3.0); HEMOGLOBIN 14.2 g/dl (12.0-15.5); IMMATURE GRANULOCYTE % 1.3 % (0-3.0); MEAN CORPUSCULAR HEMOGLOBIN 27.4 pg (27.0-33.0); MEAN CORPUSCULAR HGB CONC 32.3 g/dl (32.0-36.5); MEAN CORPUSCULAR VOLUME 84.9 fl (80.0-96.0); MONO # 1.1 10^3/uL (0.0-0.8); MONO % 7.4 % (0.0-5.0); NEUTROPHILS # 10.8 10^3/uL (1.8-7.7); NEUTROPHILS % 76.3 % (36.0-66.0); PLATELET COUNT, AUTOMATED 241 10^3/uL (150-450); RED BLOOD COUNT 5.18 10^6/uL (4.00-5.40); RED CELL DISTRIBUTION WIDTH 16.9 % (11.5-14.5); WHITE BLOOD COUNT 14.2 10^3/uL (4.0-10.0)
[2017-11-12 03:47] LABS: INR 1.49; PROTHROMBIN TIME 18.2 SECONDS (12.1-14.4)
[2017-11-12 03:48] LABS: ABG BASE EXCESS -5.4 (-2.0-2.0); ABG HCO3 17.5 MEQ/L (22.0-26.0); ABG O2 SATURATION 97.1 % (95.0-99.0); ABG PARTIAL PRESSURE CO2 27.9 mmHg (35.0-45.0); ABG PARTIAL PRESSURE O2 92.7 mmHg (75.0-100.0); ABG STANDARD HCO3 20.1 MEQ/L (22.0-26.0); ABG TOTAL CO2 18.4 MEQ/L (23.0-31.0); ABG pH (ARTERIAL) 7.416 UNITS (7.350-7.450)
[2017-11-12 03:57] LABS: ANION GAP 16 MEQ/L (8-16); BLOOD UREA NITROGEN 23 MG/DL (7-18); CALCIUM LEVEL 8.8 MG/DL (8.8-10.2); CARBON DIOXIDE LEVEL 20 MEQ/L (21-32); CHLORIDE LEVEL 102 MEQ/L (98-107); CPK CREATINE PHOSPHOKINASE 56 U/L (26-192); CREATININE FOR GFR 1.17 MG/DL (0.55-1.30); GLOMERULAR FILTRATION RATE 48.7 (>39); GLUCOSE, FASTING 193 MG/DL (70-100); POTASSIUM SERUM 4.3 MEQ/L (3.5-5.1); SODIUM LEVEL 138 MEQ/L (136-145)
[2017-11-12 03:58] LABS: CK-MB VALUE MASS 2.7 NG/ML (<3.6); MB/CK RELATIVE INDEX 4.82 (< OR =4); NT-PRO BNP 14390 PG/ML (<125)
[2017-11-12] MEDS ORDERED: ISOVUE-370 76% 100ML VIAL (Q9967) As Ordered (04:19)
[2017-11-12 05:35] LABS: PARTIAL THROMBOPLASTIN TIME 38.4 SECONDS (25.4-37.6)
[2017-11-12] MEDS: HEPARIN SOD (PORCINE) 5000 UNITS/ML VIAL IV ×2 (06:13→13:36)
[2017-11-12] MEDS: HEPARIN DRIP 25,000 UNITS in APPROPRIATE DILUENT 1 EA IV ×2 (06:13→13:28)
[2017-11-12] MEDS ORDERED: GLUCOSE 4 GM CHEW TABLET PO (06:15)
[2017-11-12] MEDS ORDERED: DEXTROSE 50% 50 ML SYRINGE IV (06:15)
[2017-11-12] MEDS ORDERED: GLUCAGON FOR INJ 1 MG VIAL (J1610) SC (06:15)
[2017-11-12] MEDS: LEVOTHYROXINE 75MCG TABLET (0.075MG) PO (06:45)
[2017-11-12 07:24] LABS: BEDSIDE GLUCOSE 176 MG/DL (83-110)
[2017-11-12 07:48] LABS: HEMOGLOBIN 13.8 g/dl (12.0-15.5); MEAN CORPUSCULAR HEMOGLOBIN 27.5 pg (27.0-33.0); MEAN CORPUSCULAR HGB CONC 32.9 g/dl (32.0-36.5); MEAN CORPUSCULAR VOLUME 83.8 fl (80.0-96.0); PLATELET COUNT, AUTOMATED 204 10^3/uL (150-450); RED BLOOD COUNT 5.01 10^6/uL (4.00-5.40); RED CELL DISTRIBUTION WIDTH 17.1 % (11.5-14.5)
[2017-11-12] MEDS: HumaLOG INSULIN (NovoLOG) PER UNIT SC ×4 (08:35→20:57)
[2017-11-12] MEDS: METOPROLOL TART 25 MG TABLET PO ×2 (08:36→20:57)
[2017-11-12] MEDS: LOSARTAN 50 MG TAB PO (08:36)
[2017-11-12] MEDS: POTASSIUM CHLORIDE 10 MEQ SR TABLET PO (08:36)
[2017-11-12] MEDS: ASPIRIN 81 MG ENTERIC TAB PO (08:36)
[2017-11-12] MEDS: hydroCHLOROthiazide 25 MG TAB PO (08:36)
[2017-11-12] MEDS: SENOKOT S TAB PO ×2 (08:37→20:57)
[2017-11-12] MEDS: PANTOPRAZOLE 40MG TAB (PROTONIX) PO (08:37)
[2017-11-12 12:14] LABS: BEDSIDE GLUCOSE 159 MG/DL (83-110)
[2017-11-12 12:15] LABS: PARTIAL THROMBOPLASTIN TIME 63.6 SECONDS (25.4-37.6)
[2017-11-12] MEDS: WARFARIN SOD 5 MG TAB PO (18:08)
[2017-11-12 18:12] LABS: BEDSIDE GLUCOSE 142 MG/DL (83-110)
[2017-11-12] MEDS: PERCOCET 5MG/325MG TAB PO (18:52)
[2017-11-12 20:28] LABS: PARTIAL THROMBOPLASTIN TIME 104.7 SECONDS (25.4-37.6)
[2017-11-12 20:49] LABS: BEDSIDE GLUCOSE 156 MG/DL (83-110)
[2017-11-13] MEDS: NS 500 ML IV (01:04)
[2017-11-13 02:16] LABS: PARTIAL THROMBOPLASTIN TIME 90.9 SECONDS (25.4-37.6)
[2017-11-13] MEDS: HEPARIN DRIP 25,000 UNITS in APPROPRIATE DILUENT 1 EA IV ×3 (02:32→22:23)
[2017-11-13 05:53] LABS: ANION GAP 12 MEQ/L (8-16); BLOOD UREA NITROGEN 28 MG/DL (7-18); CALCIUM LEVEL 8.1 MG/DL (8.8-10.2); CARBON DIOXIDE LEVEL 22 MEQ/L (21-32); CHLORIDE LEVEL 103 MEQ/L (98-107); CREATININE FOR GFR 0.95 MG/DL (0.55-1.30); GLOMERULAR FILTRATION RATE > 60.0 (>39); GLUCOSE, FASTING 139 MG/DL (70-100); POTASSIUM SERUM 3.8 MEQ/L (3.5-5.1); SODIUM LEVEL 137 MEQ/L (136-145)
[2017-11-13 06:31] LABS: HEMATOCRIT 40.5 % (36.0-47.0); HEMOGLOBIN 12.7 g/dl (12.0-15.5); MEAN CORPUSCULAR HEMOGLOBIN 27.2 pg (27.0-33.0); MEAN CORPUSCULAR HGB CONC 31.4 g/dl (32.0-36.5); MEAN CORPUSCULAR VOLUME 86.7 fl (80.0-96.0); PLATELET COUNT, AUTOMATED 177 10^3/uL (150-450); RED BLOOD COUNT 4.67 10^6/uL (4.00-5.40); RED CELL DISTRIBUTION WIDTH 17.2 % (11.5-14.5); WHITE BLOOD COUNT 9.5 10^3/uL (4.0-10.0)
[2017-11-13] MEDS: INFLUENZA VIRUS VACCINE HIGH DOSE 0.5 ML SYRINGE (90662) IM (06:37)
[2017-11-13] MEDS: LEVOTHYROXINE 75MCG TABLET (0.075MG) PO (06:37)
[2017-11-13] MEDS: LOSARTAN 50 MG TAB PO (08:04)
[2017-11-13] MEDS: hydroCHLOROthiazide 25 MG TAB PO (08:05)
[2017-11-13] MEDS: METOPROLOL TART 25 MG TABLET PO ×2 (08:05→20:25)
[2017-11-13] MEDS: PANTOPRAZOLE 40MG TAB (PROTONIX) PO (08:47)
[2017-11-13] MEDS: HumaLOG INSULIN (NovoLOG) PER UNIT SC ×4 (08:47→20:27)
[2017-11-13] MEDS: SENOKOT S TAB PO ×2 (08:48→20:01)
[2017-11-13] MEDS: PREVNAR 13 VACCINE SYRINGE (CPT CODE:90670) IM (08:48)
[2017-11-13] MEDS: POTASSIUM CHLORIDE 10 MEQ SR TABLET PO (08:48)
[2017-11-13] MEDS: ASPIRIN 81 MG ENTERIC TAB PO (08:48)
[2017-11-13] MEDS: PERCOCET 5MG/325MG TAB PO ×3 (10:11→20:01)
[2017-11-13 11:31] LABS: BEDSIDE GLUCOSE 192 MG/DL (83-110)
[2017-11-13] MEDS: LEVALBUTEROL 1.25 MG/0.5 ML CONCENTRATE NEB INH ×3 (16:23→23:27)
[2017-11-13 16:30] LABS: BEDSIDE GLUCOSE 196 MG/DL (83-110)
[2017-11-13] MEDS: WARFARIN SOD 5 MG TAB PO (16:53)
[2017-11-13] MEDS: ALPRAZolam 0.25 MG TAB PO (16:53)
[2017-11-13 20:25] LABS: BEDSIDE GLUCOSE 204 MG/DL (83-110)
[2017-11-14] MEDS: ALPRAZolam 0.25 MG TAB PO (02:43)
[2017-11-14] MEDS: LEVALBUTEROL 1.25 MG/0.5 ML CONCENTRATE NEB INH ×5 (04:00→20:00)
[2017-11-14 05:25] LABS: INR 1.94; PROTHROMBIN TIME 22.5 SECONDS (12.1-14.4)
[2017-11-14 05:27] LABS: ANION GAP 11 MEQ/L (8-16); BLOOD UREA NITROGEN 32 MG/DL (7-18); CALCIUM LEVEL 8.7 MG/DL (8.8-10.2); CARBON DIOXIDE LEVEL 22 MEQ/L (21-32); CHLORIDE LEVEL 103 MEQ/L (98-107); CREATININE FOR GFR 1.02 MG/DL (0.55-1.30); GLUCOSE, FASTING 161 MG/DL (70-100); PARTIAL THROMBOPLASTIN TIME 76.3 SECONDS (25.4-37.6); POTASSIUM SERUM 4.1 MEQ/L (3.5-5.1); SODIUM LEVEL 136 MEQ/L (136-145)
[2017-11-14] MEDS: LEVOTHYROXINE 75MCG TABLET (0.075MG) PO (05:51)
[2017-11-14 06:03] LABS: HEMATOCRIT 40.8 % (36.0-47.0); HEMOGLOBIN 13.1 g/dl (12.0-15.5); MEAN CORPUSCULAR HEMOGLOBIN 27.2 pg (27.0-33.0); MEAN CORPUSCULAR HGB CONC 32.1 g/dl (32.0-36.5); MEAN CORPUSCULAR VOLUME 84.6 fl (80.0-96.0); PLATELET COUNT, AUTOMATED 188 10^3/uL (150-450); RED BLOOD COUNT 4.82 10^6/uL (4.00-5.40); RED CELL DISTRIBUTION WIDTH 17.2 % (11.5-14.5); WHITE BLOOD COUNT 9.4 10^3/uL (4.0-10.0)
[2017-11-14] MEDS: HumaLOG INSULIN (NovoLOG) PER UNIT SC ×4 (08:09→20:43)
[2017-11-14] MEDS: ASPIRIN 81 MG ENTERIC TAB PO (08:09)
[2017-11-14] MEDS: PANTOPRAZOLE 40MG TAB (PROTONIX) PO (08:10)
[2017-11-14] MEDS: SENOKOT S TAB PO ×2 (08:10→20:43)
[2017-11-14] MEDS: POTASSIUM CHLORIDE 10 MEQ SR TABLET PO (08:11)
[2017-11-14] MEDS: hydroCHLOROthiazide 25 MG TAB PO (08:11)
[2017-11-14] MEDS: METOPROLOL TART 25 MG TABLET PO ×2 (08:11→20:43)
[2017-11-14] MEDS: LOSARTAN 50 MG TAB PO (08:11)
[2017-11-14 11:49] LABS: BEDSIDE GLUCOSE 229 MG/DL (83-110)
[2017-11-14] MEDS: ACETAMINOPHEN TAB 650MG DOSE (2X325MG) PO (12:24)
[2017-11-14] MEDS: HEPARIN DRIP 25,000 UNITS in APPROPRIATE DILUENT 1 EA IV (14:15)
[2017-11-14 17:15] LABS: BEDSIDE GLUCOSE 171 MG/DL (83-110)
[2017-11-14] MEDS: WARFARIN SOD 5 MG TAB PO (17:17)
[2017-11-14 20:28] LABS: BEDSIDE GLUCOSE 165 MG/DL (83-110)
[2017-11-15] MEDS: LEVALBUTEROL 1.25 MG/0.5 ML CONCENTRATE NEB INH ×7 (04:00→23:57)
[2017-11-15] MEDS: LEVOTHYROXINE 75MCG TABLET (0.075MG) PO (05:06)
[2017-11-15 05:31] LABS: HEMOGLOBIN 13.1 g/dl (12.0-15.5); MEAN CORPUSCULAR HEMOGLOBIN 27.1 pg (27.0-33.0); MEAN CORPUSCULAR HGB CONC 31.2 g/dl (32.0-36.5); MEAN CORPUSCULAR VOLUME 86.8 fl (80.0-96.0); PLATELET COUNT, AUTOMATED 221 10^3/uL (150-450); RED BLOOD COUNT 4.84 10^6/uL (4.00-5.40); RED CELL DISTRIBUTION WIDTH 17.2 % (11.5-14.5); WHITE BLOOD COUNT 8.7 10^3/uL (4.0-10.0)
[2017-11-15 05:42] LABS: ANION GAP 10 MEQ/L (8-16); BLOOD UREA NITROGEN 36 MG/DL (7-18); CALCIUM LEVEL 8.6 MG/DL (8.8-10.2); CARBON DIOXIDE LEVEL 26 MEQ/L (21-32); CHLORIDE LEVEL 100 MEQ/L (98-107); CREATININE FOR GFR 1.05 MG/DL (0.55-1.30); GLOMERULAR FILTRATION RATE 55.2 (>39); GLUCOSE, FASTING 162 MG/DL (70-100); INR 2.06; POTASSIUM SERUM 4.1 MEQ/L (3.5-5.1); PROTHROMBIN TIME 23.6 SECONDS (12.1-14.4); SODIUM LEVEL 136 MEQ/L (136-145)
[2017-11-15 05:44] LABS: PARTIAL THROMBOPLASTIN TIME 85.5 SECONDS (25.4-37.6)
[2017-11-15] MEDS: METOPROLOL TART 25 MG TABLET PO ×2 (08:19→21:14)
[2017-11-15] MEDS: LOSARTAN 50 MG TAB PO (08:19)
[2017-11-15] MEDS: hydroCHLOROthiazide 25 MG TAB PO (08:19)
[2017-11-15] MEDS: HumaLOG INSULIN (NovoLOG) PER UNIT SC ×4 (09:00→21:00)
[2017-11-15] MEDS: SENOKOT S TAB PO ×2 (09:00→21:15)
[2017-11-15] MEDS: POTASSIUM CHLORIDE 10 MEQ SR TABLET PO (09:01)
[2017-11-15] MEDS: ASPIRIN 81 MG ENTERIC TAB PO (09:01)
[2017-11-15] MEDS: PANTOPRAZOLE 40MG TAB (PROTONIX) PO (09:01)
[2017-11-15 11:35] LABS: BEDSIDE GLUCOSE 185 MG/DL (83-110)
[2017-11-15 12:44] LABS: LACTIC ACID SEPSIS PROTOCOL 2.5 MMOL/L (0.4-2.0)
[2017-11-15] MEDS: ACETAMINOPHEN TAB 650MG DOSE (2X325MG) PO (16:03)
[2017-11-15 16:24] LABS: BEDSIDE GLUCOSE 179 MG/DL (83-110)
[2017-11-15] MEDS: WARFARIN SOD 5 MG TAB PO (16:50)
[2017-11-15] MEDS ORDERED: SLF 3 ML SYR IV (18:45)
[2017-11-15 21:12] LABS: BEDSIDE GLUCOSE 206 MG/DL (83-110)
[2017-11-15] MEDS: PERCOCET 5MG/325MG TAB PO (21:15)
[2017-11-15] MEDS: SLF 3 ML SYR IV (21:16)
[2017-11-15 23:27] LABS: INR 2.32; PROTHROMBIN TIME 25.9 SECONDS (12.1-14.4)
[2017-11-16] MEDS: SLF 3 ML SYR IV ×3 (05:05→21:03)
[2017-11-16] MEDS: LEVOTHYROXINE 75MCG TABLET (0.075MG) PO (05:14)
[2017-11-16 05:24] LABS: HEMATOCRIT 42.3 % (36.0-47.0); HEMOGLOBIN 13.3 g/dl (12.0-15.5); MEAN CORPUSCULAR HEMOGLOBIN 27.3 pg (27.0-33.0); MEAN CORPUSCULAR HGB CONC 31.4 g/dl (32.0-36.5); MEAN CORPUSCULAR VOLUME 86.9 fl (80.0-96.0); PLATELET COUNT, AUTOMATED 185 10^3/uL (150-450); RED BLOOD COUNT 4.87 10^6/uL (4.00-5.40); RED CELL DISTRIBUTION WIDTH 17.2 % (11.5-14.5); WHITE BLOOD COUNT 9.6 10^3/uL (4.0-10.0)
[2017-11-16 05:32] LABS: INR 2.42; PROTHROMBIN TIME 26.8 SECONDS (12.1-14.4)
[2017-11-16 05:33] LABS: PARTIAL THROMBOPLASTIN TIME 39.2 SECONDS (25.4-37.6)
[2017-11-16 05:40] LABS: ANION GAP 10 MEQ/L (8-16); BLOOD UREA NITROGEN 34 MG/DL (7-18); CARBON DIOXIDE LEVEL 25 MEQ/L (21-32); CHLORIDE LEVEL 101 MEQ/L (98-107); CREATININE FOR GFR 1.13 MG/DL (0.55-1.30); GLOMERULAR FILTRATION RATE 50.7 (>39); GLUCOSE, FASTING 161 MG/DL (70-100); POTASSIUM SERUM 4.4 MEQ/L (3.5-5.1); SODIUM LEVEL 136 MEQ/L (136-145)
[2017-11-16] MEDS: POTASSIUM CHLORIDE 10 MEQ SR TABLET PO (07:51)
[2017-11-16] MEDS: ASPIRIN 81 MG ENTERIC TAB PO (07:51)
[2017-11-16] MEDS: PANTOPRAZOLE 40MG TAB (PROTONIX) PO (07:51)
[2017-11-16] MEDS: SENOKOT S TAB PO ×2 (07:52→20:33)
[2017-11-16] MEDS: HumaLOG INSULIN (NovoLOG) PER UNIT SC ×4 (07:53→20:29)
[2017-11-16] MEDS: VITAMIN D 50,000 UNITS CAPSULE (ERGOCALCIFEROL 1.25MG) PO (07:53)
[2017-11-16] MEDS: hydroCHLOROthiazide 25 MG TAB PO (07:57)
[2017-11-16] MEDS: LOSARTAN 50 MG TAB PO (07:57)
[2017-11-16] MEDS: METOPROLOL TART 25 MG TABLET PO ×2 (07:58→20:36)
[2017-11-16] MEDS: LEVALBUTEROL 1.25 MG/0.5 ML CONCENTRATE NEB INH ×4 (08:00→20:00)
[2017-11-16] MEDS: FUROSEMIDE 40 MG/4 ML VIAL (J1940) IV ×2 (10:39→16:32)
[2017-11-16 11:26] LABS: BEDSIDE GLUCOSE 179 MG/DL (83-110)
[2017-11-16] MEDS: WARFARIN SOD 5 MG TAB PO (16:32)
[2017-11-16 16:36] LABS: BEDSIDE GLUCOSE 158 MG/DL (83-110)
[2017-11-16 16:42] LABS: NT-PRO BNP 8871 PG/ML (<125)
[2017-11-16 20:29] LABS: BEDSIDE GLUCOSE 158 MG/DL (83-110)
[2017-11-17 00:13] LABS: ANION GAP 6 MEQ/L (8-16); BLOOD UREA NITROGEN 30 MG/DL (7-18); CALCIUM LEVEL 8.7 MG/DL (8.8-10.2); CARBON DIOXIDE LEVEL 28 MEQ/L (21-32); CHLORIDE LEVEL 101 MEQ/L (98-107); CREATININE FOR GFR 1.13 MG/DL (0.55-1.30); GLOMERULAR FILTRATION RATE 50.7 (>39); GLUCOSE, FASTING 139 MG/DL (70-100); POTASSIUM SERUM 4.5 MEQ/L (3.5-5.1); SODIUM LEVEL 135 MEQ/L (136-145)
[2017-11-17] MEDS: FUROSEMIDE 40 MG/4 ML VIAL (J1940) IV ×5 (00:49→23:35)
[2017-11-17] MEDS: LEVALBUTEROL 1.25 MG/0.5 ML CONCENTRATE NEB INH ×7 (04:00→20:23)
[2017-11-17] MEDS: SLF 3 ML SYR IV ×3 (05:48→22:03)
[2017-11-17] MEDS: LEVOTHYROXINE 75MCG TABLET (0.075MG) PO (05:58)
[2017-11-17 06:40] LABS: HEMATOCRIT 42.4 % (36.0-47.0); HEMOGLOBIN 13.4 g/dl (12.0-15.5); MEAN CORPUSCULAR HGB CONC 31.6 g/dl (32.0-36.5); MEAN CORPUSCULAR VOLUME 85.5 fl (80.0-96.0); PLATELET COUNT, AUTOMATED 215 10^3/uL (150-450); RED BLOOD COUNT 4.96 10^6/uL (4.00-5.40); RED CELL DISTRIBUTION WIDTH 17.5 % (11.5-14.5); WHITE BLOOD COUNT 9.6 10^3/uL (4.0-10.0)
[2017-11-17 06:53] LABS: INR 2.69; PROTHROMBIN TIME 29.2 SECONDS (12.1-14.4)
[2017-11-17 07:12] LABS: ANION GAP 10 MEQ/L (8-16); BLOOD UREA NITROGEN 29 MG/DL (7-18); CALCIUM LEVEL 8.9 MG/DL (8.8-10.2); CARBON DIOXIDE LEVEL 27 MEQ/L (21-32); CHLORIDE LEVEL 101 MEQ/L (98-107); CREATININE FOR GFR 1.07 MG/DL (0.55-1.30); GLUCOSE, FASTING 163 MG/DL (70-100); POTASSIUM SERUM 4.6 MEQ/L (3.5-5.1); SODIUM LEVEL 138 MEQ/L (136-145)
[2017-11-17] MEDS: HumaLOG INSULIN (NovoLOG) PER UNIT SC ×4 (07:59→20:23)
[2017-11-17] MEDS: ASPIRIN 81 MG ENTERIC TAB PO (07:59)
[2017-11-17] MEDS: SENOKOT S TAB PO ×2 (07:59→20:44)
[2017-11-17] MEDS: METOPROLOL TART 25 MG TABLET PO ×2 (08:00→20:23)
[2017-11-17] MEDS: PANTOPRAZOLE 40MG TAB (PROTONIX) PO (08:01)
[2017-11-17] MEDS: POTASSIUM CHLORIDE 10 MEQ SR TABLET PO (08:01)
[2017-11-17] MEDS: LOSARTAN 50 MG TAB PO (08:01)
[2017-11-17 11:36] LABS: BEDSIDE GLUCOSE 150 MG/DL (83-110)
[2017-11-17 16:48] LABS: BEDSIDE GLUCOSE 175 MG/DL (83-110)
[2017-11-17] MEDS: WARFARIN SOD 5 MG TAB PO (16:51)
[2017-11-17] MEDS: PERCOCET 5MG/325MG TAB PO (19:50)
[2017-11-17 20:01] LABS: BEDSIDE GLUCOSE 187 MG/DL (83-110)
[2017-11-18] MEDS: LEVALBUTEROL 1.25 MG/0.5 ML CONCENTRATE NEB INH ×6 (00:19→22:37)
[2017-11-18] MEDS: LEVOTHYROXINE 75MCG TABLET (0.075MG) PO (05:09)
[2017-11-18] MEDS: FUROSEMIDE 40 MG/4 ML VIAL (J1940) IV ×4 (05:09→23:01)
[2017-11-18] MEDS: SLF 3 ML SYR IV ×3 (05:10→20:58)
[2017-11-18 06:53] LABS: HEMATOCRIT 41.7 % (36.0-47.0); MEAN CORPUSCULAR HEMOGLOBIN 27.2 pg (27.0-33.0); MEAN CORPUSCULAR HGB CONC 31.2 g/dl (32.0-36.5); MEAN CORPUSCULAR VOLUME 87.2 fl (80.0-96.0); PLATELET COUNT, AUTOMATED 204 10^3/uL (150-450); RED BLOOD COUNT 4.78 10^6/uL (4.00-5.40); RED CELL DISTRIBUTION WIDTH 17.5 % (11.5-14.5); WHITE BLOOD COUNT 7.4 10^3/uL (4.0-10.0)
[2017-11-18 07:12] LABS: INR 2.61; PROTHROMBIN TIME 28.5 SECONDS (12.1-14.4)
[2017-11-18 07:21] LABS: ALBUMIN 3.2 GM/DL (3.2-5.2); ALBUMIN/GLOBULIN RATIO 0.97 (1.00-1.93); ALKALINE PHOSPHATASE 99 U/L (45-117); ALT/SGPT 20 U/L (12-78); ANION GAP 8 MEQ/L (8-16); AST/SGOT 28 U/L (7-37); BILIRUBIN,DIRECT 0.2 MG/DL (0.0-0.2); BILIRUBIN,TOTAL 0.5 MG/DL (0.2-1.0); BLOOD UREA NITROGEN 25 MG/DL (7-18); CALCIUM LEVEL 8.5 MG/DL (8.8-10.2); CARBON DIOXIDE LEVEL 29 MEQ/L (21-32); CHLORIDE LEVEL 102 MEQ/L (98-107); CREATININE FOR GFR 1.06 MG/DL (0.55-1.30); GLOMERULAR FILTRATION RATE 54.6 (>39); GLUCOSE, FASTING 154 MG/DL (70-100); SODIUM LEVEL 139 MEQ/L (136-145); TOTAL PROTEIN 6.5 GM/DL (6.4-8.2)
[2017-11-18] MEDS: HumaLOG INSULIN (NovoLOG) PER UNIT SC ×4 (08:35→20:46)
[2017-11-18] MEDS: ASPIRIN 81 MG ENTERIC TAB PO (08:35)
[2017-11-18] MEDS: POTASSIUM CHLORIDE 10 MEQ SR TABLET PO (08:36)
[2017-11-18] MEDS: SENOKOT S TAB PO ×2 (08:36→20:57)
[2017-11-18] MEDS: PANTOPRAZOLE 40MG TAB (PROTONIX) PO (08:36)
[2017-11-18] MEDS: METOPROLOL TART 25 MG TABLET PO ×2 (08:39→20:58)
[2017-11-18 12:13] LABS: BEDSIDE GLUCOSE 146 MG/DL (83-110)
[2017-11-18] MEDS: CYCLOBENZAPRINE 10 MG TAB PO (12:30)
[2017-11-18] MEDS: ACETAMINOPHEN 500 MG TAB PO (12:31)
[2017-11-18 16:56] LABS: BEDSIDE GLUCOSE 175 MG/DL (83-110)
[2017-11-18] MEDS: WARFARIN SOD 5 MG TAB PO (17:22)
[2017-11-18 20:36] LABS: BEDSIDE GLUCOSE 161 MG/DL (83-110)
[2017-11-19] MEDS: LEVALBUTEROL 1.25 MG/0.5 ML CONCENTRATE NEB INH ×7 (01:04→23:35)
[2017-11-19] MEDS: LEVOTHYROXINE 75MCG TABLET (0.075MG) PO (05:46)
[2017-11-19] MEDS: FUROSEMIDE 40 MG/4 ML VIAL (J1940) IV (05:46)
[2017-11-19] MEDS: SLF 3 ML SYR IV ×3 (05:50→21:13)
[2017-11-19 07:59] LABS: HEMATOCRIT 42.2 % (36.0-47.0); HEMOGLOBIN 13.2 g/dl (12.0-15.5); MEAN CORPUSCULAR HEMOGLOBIN 27.6 pg (27.0-33.0); MEAN CORPUSCULAR HGB CONC 31.3 g/dl (32.0-36.5); MEAN CORPUSCULAR VOLUME 88.1 fl (80.0-96.0); PLATELET COUNT, AUTOMATED 208 10^3/uL (150-450); RED BLOOD COUNT 4.79 10^6/uL (4.00-5.40); RED CELL DISTRIBUTION WIDTH 17.4 % (11.5-14.5); WHITE BLOOD COUNT 6.9 10^3/uL (4.0-10.0)
[2017-11-19 08:07] LABS: INR 2.29; PROTHROMBIN TIME 25.7 SECONDS (12.1-14.4)
[2017-11-19 08:08] LABS: PARTIAL THROMBOPLASTIN TIME 40.6 SECONDS (25.4-37.6)
[2017-11-19 08:17] LABS: ANION GAP 8 MEQ/L (8-16); BLOOD UREA NITROGEN 23 MG/DL (7-18); CALCIUM LEVEL 8.7 MG/DL (8.8-10.2); CARBON DIOXIDE LEVEL 30 MEQ/L (21-32); CHLORIDE LEVEL 103 MEQ/L (98-107); CREATININE FOR GFR 0.97 MG/DL (0.55-1.30); GLOMERULAR FILTRATION RATE > 60.0 (>39); GLUCOSE, FASTING 142 MG/DL (70-100); SODIUM LEVEL 141 MEQ/L (136-145)
[2017-11-19] MEDS: HumaLOG INSULIN (NovoLOG) PER UNIT SC ×4 (09:20→21:00)
[2017-11-19] MEDS: PANTOPRAZOLE 40MG TAB (PROTONIX) PO (09:24)
[2017-11-19] MEDS: SENOKOT S TAB PO ×2 (09:24→20:42)
[2017-11-19] MEDS: ACETAMINOPHEN 500 MG TAB PO (09:24)
[2017-11-19] MEDS: POTASSIUM CHLORIDE 10 MEQ SR TABLET PO (09:25)
[2017-11-19] MEDS: METOPROLOL TART 25 MG TABLET PO ×2 (09:26→20:47)
[2017-11-19] MEDS: ASPIRIN 81 MG ENTERIC TAB PO (09:26)
[2017-11-19 17:07] LABS: BEDSIDE GLUCOSE 156 MG/DL (83-110)
[2017-11-19] MEDS: FUROSEMIDE 100 MG/10 ML VIAL (J1940) IV (18:14)
[2017-11-19] MEDS: WARFARIN SOD 5 MG TAB PO (18:15)
[2017-11-19] MEDS: CYCLOBENZAPRINE 10 MG TAB PO (20:42)
[2017-11-19 21:01] LABS: BEDSIDE GLUCOSE 205 MG/DL (83-110)
[2017-11-20] MEDS: SLF 3 ML SYR IV ×3 (05:47→22:00)
[2017-11-20] MEDS: LEVOTHYROXINE 75MCG TABLET (0.075MG) PO (05:47)
[2017-11-20 07:38] LABS: HEMATOCRIT 40.5 % (36.0-47.0); HEMOGLOBIN 12.8 g/dl (12.0-15.5); MEAN CORPUSCULAR HEMOGLOBIN 27.6 pg (27.0-33.0); MEAN CORPUSCULAR HGB CONC 31.6 g/dl (32.0-36.5); MEAN CORPUSCULAR VOLUME 87.3 fl (80.0-96.0); PLATELET COUNT, AUTOMATED 193 10^3/uL (150-450); RED BLOOD COUNT 4.64 10^6/uL (4.00-5.40); RED CELL DISTRIBUTION WIDTH 17.4 % (11.5-14.5)
[2017-11-20 07:54] LABS: INR 2.19; PARTIAL THROMBOPLASTIN TIME 40.6 SECONDS (25.4-37.6); PROTHROMBIN TIME 24.8 SECONDS (12.1-14.4)
[2017-11-20 08:00] LABS: ANION GAP 7 MEQ/L (8-16); BLOOD UREA NITROGEN 23 MG/DL (7-18); CALCIUM LEVEL 8.5 MG/DL (8.8-10.2); CARBON DIOXIDE LEVEL 30 MEQ/L (21-32); CHLORIDE LEVEL 104 MEQ/L (98-107); CREATININE FOR GFR 0.91 MG/DL (0.55-1.30); GLOMERULAR FILTRATION RATE > 60.0 (>39); GLUCOSE, FASTING 136 MG/DL (70-100); POTASSIUM SERUM 3.8 MEQ/L (3.5-5.1); SODIUM LEVEL 141 MEQ/L (136-145)
[2017-11-20] MEDS: LEVALBUTEROL 1.25 MG/0.5 ML CONCENTRATE NEB INH ×4 (08:24→21:08)
[2017-11-20] MEDS: METOPROLOL TART 25 MG TABLET PO ×2 (09:00→20:41)
[2017-11-20] MEDS: ASPIRIN 81 MG ENTERIC TAB PO (09:50)
[2017-11-20] MEDS: FUROSEMIDE 100 MG/10 ML VIAL (J1940) IV ×2 (09:51→18:02)
[2017-11-20] MEDS: HumaLOG INSULIN (NovoLOG) PER UNIT SC ×4 (09:51→20:43)
[2017-11-20] MEDS: POTASSIUM CHLORIDE 10 MEQ SR TABLET PO (09:52)
[2017-11-20] MEDS: SENOKOT S TAB PO ×2 (09:52→20:42)
[2017-11-20] MEDS: PANTOPRAZOLE 40MG TAB (PROTONIX) PO (09:52)
[2017-11-20 11:34] LABS: BEDSIDE GLUCOSE 138 MG/DL (83-110)
[2017-11-20 11:36] LABS: BEDSIDE GLUCOSE 138 MG/DL (83-110)
[2017-11-20 12:43] LABS: BEDSIDE GLUCOSE 161 MG/DL (83-110)
[2017-11-20] MEDS: WARFARIN SOD 5 MG TAB PO (18:02)
[2017-11-20] MEDS: ACETAMINOPHEN 500 MG TAB PO (20:42)
[2017-11-21] MEDS: LEVALBUTEROL 1.25 MG/0.5 ML CONCENTRATE NEB INH ×7 (01:01→20:00)
[2017-11-21] MEDS: SLF 3 ML SYR IV ×3 (06:07→21:48)
[2017-11-21] MEDS: LEVOTHYROXINE 75MCG TABLET (0.075MG) PO (06:07)
[2017-11-21 06:12] LABS: HEMATOCRIT 40.7 % (36.0-47.0); HEMOGLOBIN 12.9 g/dl (12.0-15.5); MEAN CORPUSCULAR HEMOGLOBIN 27.1 pg (27.0-33.0); MEAN CORPUSCULAR HGB CONC 31.7 g/dl (32.0-36.5); MEAN CORPUSCULAR VOLUME 85.5 fl (80.0-96.0); PLATELET COUNT, AUTOMATED 204 10^3/uL (150-450); RED BLOOD COUNT 4.76 10^6/uL (4.00-5.40); WHITE BLOOD COUNT 5.9 10^3/uL (4.0-10.0)
[2017-11-21 06:34] LABS: ANION GAP 6 MEQ/L (8-16); BLOOD UREA NITROGEN 24 MG/DL (7-18); CALCIUM LEVEL 8.6 MG/DL (8.8-10.2); CARBON DIOXIDE LEVEL 32 MEQ/L (21-32); CHLORIDE LEVEL 102 MEQ/L (98-107); CREATININE FOR GFR 0.84 MG/DL (0.55-1.30); GLOMERULAR FILTRATION RATE > 60.0 (>39); GLUCOSE, FASTING 133 MG/DL (70-100); POTASSIUM SERUM 3.6 MEQ/L (3.5-5.1); SODIUM LEVEL 140 MEQ/L (136-145)
[2017-11-21] MEDS: FUROSEMIDE 100 MG/10 ML VIAL (J1940) IV ×2 (09:28→17:41)
[2017-11-21] MEDS: HumaLOG INSULIN (NovoLOG) PER UNIT SC ×4 (09:28→21:00)
[2017-11-21] MEDS: POTASSIUM CHLORIDE 10 MEQ SR TABLET PO (09:29)
[2017-11-21] MEDS: PANTOPRAZOLE 40MG TAB (PROTONIX) PO (09:30)
[2017-11-21] MEDS: SENOKOT S TAB PO ×2 (09:30→21:47)
[2017-11-21] MEDS: ASPIRIN 81 MG ENTERIC TAB PO (09:30)
[2017-11-21] MEDS: METOPROLOL TART 25 MG TABLET PO ×2 (09:33→21:48)
[2017-11-21 12:06] LABS: BEDSIDE GLUCOSE 148 MG/DL (83-110)
[2017-11-21] MEDS: WARFARIN SOD 5 MG TAB PO (17:41)
[2017-11-22] MEDS: LEVALBUTEROL 1.25 MG/0.5 ML CONCENTRATE NEB INH ×5 (04:00→20:00)
[2017-11-22] MEDS: LEVOTHYROXINE 75MCG TABLET (0.075MG) PO (06:49)
[2017-11-22] MEDS: SLF 3 ML SYR IV ×3 (06:50→21:55)
[2017-11-22] MEDS: HumaLOG INSULIN (NovoLOG) PER UNIT SC ×4 (07:30→21:00)
[2017-11-22 07:38] LABS: BEDSIDE GLUCOSE 193 MG/DL (83-110)
[2017-11-22 07:38] LABS: BEDSIDE GLUCOSE 132 MG/DL (83-110)
[2017-11-22 07:38] LABS: BEDSIDE GLUCOSE 134 MG/DL (83-110)
[2017-11-22 07:38] LABS: BEDSIDE GLUCOSE 173 MG/DL (83-110)
[2017-11-22 07:38] LABS: BEDSIDE GLUCOSE 142 MG/DL (83-110)
[2017-11-22] MEDS: metOLazone 5 MG TAB PO (07:38)
[2017-11-22] MEDS: FUROSEMIDE 100 MG/10 ML VIAL (J1940) IV ×3 (08:52→23:19)
[2017-11-22] MEDS: POTASSIUM CHLORIDE 10 MEQ SR TABLET PO (08:53)
[2017-11-22] MEDS: ASPIRIN 81 MG ENTERIC TAB PO (08:53)
[2017-11-22] MEDS: PANTOPRAZOLE 40MG TAB (PROTONIX) PO (08:53)
[2017-11-22] MEDS: SENOKOT S TAB PO ×2 (08:53→21:53)
[2017-11-22] MEDS: METOPROLOL TART 25 MG TABLET PO ×2 (08:57→21:54)
[2017-11-22 11:57] LABS: BEDSIDE GLUCOSE 158 MG/DL (83-110)
[2017-11-22] MEDS: WARFARIN SOD 5 MG TAB PO (16:59)
[2017-11-23] MEDS: LEVALBUTEROL 1.25 MG/0.5 ML CONCENTRATE NEB INH ×6 (04:00→20:00)
[2017-11-23] MEDS: LEVOTHYROXINE 75MCG TABLET (0.075MG) PO (06:06)
[2017-11-23] MEDS: SLF 3 ML SYR IV ×3 (06:06→21:08)
[2017-11-23 06:28] LABS: BASO # 0.1 10^3/uL (0.0-0.2); BASO % 0.7 % (0.0-1.0); EOS # 0.4 10^3/uL (0.0-0.50); EOS % 5.7 % (0.0-3.0); HEMATOCRIT 45.7 % (36.0-47.0); HEMOGLOBIN 14.4 g/dl (12.0-15.5); LYMPH # 1.6 10^3/uL (1.5-4.5); LYMPH % 23.4 % (24.0-44.0); MEAN CORPUSCULAR HEMOGLOBIN 26.7 pg (27.0-33.0); MEAN CORPUSCULAR HGB CONC 31.5 g/dl (32.0-36.5); MEAN CORPUSCULAR VOLUME 84.8 fl (80.0-96.0); MONO # 0.8 10^3/uL (0.0-0.8); MONO % 11.3 % (0.0-5.0); NEUTROPHILS % 57.9 % (36.0-66.0); PLATELET COUNT, AUTOMATED 247 10^3/uL (150-450); RED BLOOD COUNT 5.39 10^6/uL (4.00-5.40); RED CELL DISTRIBUTION WIDTH 16.6 % (11.5-14.5)
[2017-11-23 06:47] LABS: INR 1.93; PROTHROMBIN TIME 22.4 SECONDS (12.1-14.4)
[2017-11-23 06:52] LABS: ANION GAP 9 MEQ/L (8-16); BLOOD UREA NITROGEN 24 MG/DL (7-18); CALCIUM LEVEL 9.2 MG/DL (8.8-10.2); CARBON DIOXIDE LEVEL 35 MEQ/L (21-32); CHLORIDE LEVEL 97 MEQ/L (98-107); CREATININE FOR GFR 1.07 MG/DL (0.55-1.30); GLUCOSE, FASTING 131 MG/DL (70-100); POTASSIUM SERUM 3.4 MEQ/L (3.5-5.1); SODIUM LEVEL 141 MEQ/L (136-145)
[2017-11-23] MEDS: HumaLOG INSULIN (NovoLOG) PER UNIT SC ×4 (08:12→21:00)
[2017-11-23] MEDS: SENOKOT S TAB PO ×2 (08:13→21:07)
[2017-11-23] MEDS: ASPIRIN 81 MG ENTERIC TAB PO (08:13)
[2017-11-23] MEDS: PANTOPRAZOLE 40MG TAB (PROTONIX) PO (08:13)
[2017-11-23] MEDS: FUROSEMIDE 100 MG/10 ML VIAL (J1940) IV ×2 (08:13→16:41)
[2017-11-23] MEDS: POTASSIUM CHLORIDE 10 MEQ SR TABLET PO (08:13)
[2017-11-23] MEDS: METOPROLOL TART 25 MG TABLET PO ×2 (08:14→21:07)
[2017-11-23] MEDS: VITAMIN D 50,000 UNITS CAPSULE (ERGOCALCIFEROL 1.25MG) PO (08:14)
[2017-11-23] MEDS: WARFARIN SOD 5 MG TAB PO (16:41)
[2017-11-23] MEDS: WARFARIN SOD 2 MG TAB PO (16:41)
[2017-11-24] MEDS: FUROSEMIDE 100 MG/10 ML VIAL (J1940) IV ×4 (00:49→23:19)
[2017-11-24] MEDS: LEVALBUTEROL 1.25 MG/0.5 ML CONCENTRATE NEB INH ×4 (04:00→11:43)
[2017-11-24 06:07] LABS: BASO # 0.1 10^3/uL (0.0-0.2); EOS # 0.4 10^3/uL (0.0-0.50); EOS % 5.6 % (0.0-3.0); HEMATOCRIT 44.4 % (36.0-47.0); HEMOGLOBIN 14.2 g/dl (12.0-15.5); IMMATURE GRANULOCYTE % 0.4 % (0-3.0); LYMPH # 1.6 10^3/uL (1.5-4.5); LYMPH % 22.9 % (24.0-44.0); MEAN CORPUSCULAR HEMOGLOBIN 26.8 pg (27.0-33.0); MEAN CORPUSCULAR VOLUME 83.9 fl (80.0-96.0); MONO # 0.8 10^3/uL (0.0-0.8); NEUTROPHILS # 4.2 10^3/uL (1.8-7.7); NEUTROPHILS % 59.1 % (36.0-66.0); PLATELET COUNT, AUTOMATED 242 10^3/uL (150-450); RED BLOOD COUNT 5.29 10^6/uL (4.00-5.40); RED CELL DISTRIBUTION WIDTH 16.4 % (11.5-14.5); WHITE BLOOD COUNT 7.1 10^3/uL (4.0-10.0)
[2017-11-24 06:21] LABS: ANION GAP 8 MEQ/L (8-16); BLOOD UREA NITROGEN 28 MG/DL (7-18); CALCIUM LEVEL 8.8 MG/DL (8.8-10.2); CARBON DIOXIDE LEVEL 35 MEQ/L (21-32); CHLORIDE LEVEL 96 MEQ/L (98-107); CREATININE FOR GFR 1.08 MG/DL (0.55-1.30); GLOMERULAR FILTRATION RATE 53.4 (>39); GLUCOSE, FASTING 155 MG/DL (70-100); INR 2.03; POTASSIUM SERUM 3.2 MEQ/L (3.5-5.1); PROTHROMBIN TIME 23.3 SECONDS (12.1-14.4); SODIUM LEVEL 139 MEQ/L (136-145)
[2017-11-24] MEDS: SLF 3 ML SYR IV ×3 (06:37→21:07)
[2017-11-24] MEDS: LEVOTHYROXINE 75MCG TABLET (0.075MG) PO (06:37)
[2017-11-24 07:08] LABS: BEDSIDE GLUCOSE 143 MG/DL (83-110)
[2017-11-24 07:08] LABS: BEDSIDE GLUCOSE 183 MG/DL (83-110)
[2017-11-24 07:08] LABS: BEDSIDE GLUCOSE 115 MG/DL (83-110)
[2017-11-24 07:08] LABS: BEDSIDE GLUCOSE 127 MG/DL (83-110)
[2017-11-24 07:08] LABS: BEDSIDE GLUCOSE 128 MG/DL (83-110)
[2017-11-24 08:46] LABS: MAGNESIUM LEVEL 1.9 MG/DL (1.8-2.4); NT-PRO BNP 560 PG/ML (<125)
[2017-11-24] MEDS: HumaLOG INSULIN (NovoLOG) PER UNIT SC ×4 (09:28→21:00)
[2017-11-24] MEDS: PANTOPRAZOLE 40MG TAB (PROTONIX) PO (09:29)
[2017-11-24] MEDS: ASPIRIN 81 MG ENTERIC TAB PO (09:29)
[2017-11-24] MEDS: POTASSIUM CHLORIDE 10 MEQ SR TABLET PO (09:30)
[2017-11-24] MEDS: SENOKOT S TAB PO ×2 (09:30→21:04)
[2017-11-24] MEDS: METOPROLOL TART 25 MG TABLET PO ×2 (09:32→21:00)
[2017-11-24] MEDS: MAG SULF 1GM/100ML (MAG RUN) 1 GM in APPROPRIATE DILUENT 1 EA IV (11:43)
[2017-11-24] MEDS: WARFARIN SOD 5 MG TAB PO (17:02)
[2017-11-24 23:24] LABS: ANION GAP 5 MEQ/L (8-16); BLOOD UREA NITROGEN 28 MG/DL (7-18); CARBON DIOXIDE LEVEL 38 MEQ/L (21-32); CHLORIDE LEVEL 98 MEQ/L (98-107); CREATININE FOR GFR 1.16 MG/DL (0.55-1.30); GLOMERULAR FILTRATION RATE 49.2 (>39); GLUCOSE, FASTING 130 MG/DL (70-100); MAGNESIUM LEVEL 2.3 MG/DL (1.8-2.4); POTASSIUM SERUM 3.3 MEQ/L (3.5-5.1); SODIUM LEVEL 141 MEQ/L (136-145)
[2017-11-25 01:26] LABS: BEDSIDE GLUCOSE 163 MG/DL (83-110)
[2017-11-25 01:26] LABS: BEDSIDE GLUCOSE 156 MG/DL (83-110)
[2017-11-25 01:27] LABS: BEDSIDE GLUCOSE 179 MG/DL (83-110)
[2017-11-25] MEDS: LEVOTHYROXINE 75MCG TABLET (0.075MG) PO (05:36)
[2017-11-25] MEDS: SLF 3 ML SYR IV ×3 (05:37→21:08)
[2017-11-25 06:45] LABS: BASO # 0.1 10^3/uL (0.0-0.2); BASO % 0.7 % (0.0-1.0); EOS # 0.3 10^3/uL (0.0-0.50); EOS % 4.4 % (0.0-3.0); HEMATOCRIT 45.6 % (36.0-47.0); HEMOGLOBIN 14.4 g/dl (12.0-15.5); IMMATURE GRANULOCYTE % 0.4 % (0-3.0); LYMPH # 1.6 10^3/uL (1.5-4.5); LYMPH % 22.3 % (24.0-44.0); MEAN CORPUSCULAR HEMOGLOBIN 26.6 pg (27.0-33.0); MEAN CORPUSCULAR HGB CONC 31.6 g/dl (32.0-36.5); MEAN CORPUSCULAR VOLUME 84.1 fl (80.0-96.0); MONO # 0.8 10^3/uL (0.0-0.8); MONO % 11.4 % (0.0-5.0); NEUTROPHILS # 4.4 10^3/uL (1.8-7.7); NEUTROPHILS % 60.8 % (36.0-66.0); PLATELET COUNT, AUTOMATED 241 10^3/uL (150-450); RED BLOOD COUNT 5.42 10^6/uL (4.00-5.40); RED CELL DISTRIBUTION WIDTH 16.7 % (11.5-14.5); WHITE BLOOD COUNT 7.3 10^3/uL (4.0-10.0)
[2017-11-25 06:51] LABS: INR 1.99
[2017-11-25 07:13] LABS: ANION GAP 8 MEQ/L (8-16); BLOOD UREA NITROGEN 26 MG/DL (7-18); CALCIUM LEVEL 8.9 MG/DL (8.8-10.2); CARBON DIOXIDE LEVEL 35 MEQ/L (21-32); CHLORIDE LEVEL 97 MEQ/L (98-107); CREATININE FOR GFR 1.14 MG/DL (0.55-1.30); GLOMERULAR FILTRATION RATE 50.2 (>39); GLUCOSE, FASTING 145 MG/DL (70-100); SODIUM LEVEL 140 MEQ/L (136-145)
[2017-11-25] MEDS: HumaLOG INSULIN (NovoLOG) PER UNIT SC ×4 (08:29→21:00)
[2017-11-25] MEDS: FUROSEMIDE 100 MG/10 ML VIAL (J1940) IV (08:30)
[2017-11-25] MEDS: PANTOPRAZOLE 40MG TAB (PROTONIX) PO (08:31)
[2017-11-25] MEDS: ASPIRIN 81 MG ENTERIC TAB PO (08:32)
[2017-11-25] MEDS: SENOKOT S TAB PO ×2 (08:32→21:08)
[2017-11-25] MEDS: METOPROLOL TART 25 MG TABLET PO ×3 (08:32→21:07)
[2017-11-25] MEDS: POTASSIUM CHLORIDE 10 MEQ SR TABLET PO ×2 (08:32→12:07)
[2017-11-25 11:53] LABS: BEDSIDE GLUCOSE 185 MG/DL (83-110)
[2017-11-25] MEDS: ENOXAPARIN 120 MG/0.8 ML SYR (J1650) SC (14:02)
[2017-11-25] MEDS: WARFARIN SOD 7.5 MG TAB PO (17:18)
[2017-11-25 17:53] LABS: BEDSIDE GLUCOSE 152 MG/DL (83-110)
[2017-11-25 19:33] LABS: INR 2.23; PROTHROMBIN TIME 25.1 SECONDS (12.1-14.4)
[2017-11-25 21:27] LABS: BEDSIDE GLUCOSE 188 MG/DL (83-110)
[2017-11-26] MEDS: LEVOTHYROXINE 75MCG TABLET (0.075MG) PO (05:54)
[2017-11-26] MEDS: SLF 3 ML SYR IV (05:54)
[2017-11-26 06:18] LABS: BASO # 0.1 10^3/uL (0.0-0.2); BASO % 0.8 % (0.0-1.0); EOS # 0.3 10^3/uL (0.0-0.50); EOS % 5.2 % (0.0-3.0); HEMATOCRIT 45.5 % (36.0-47.0); HEMOGLOBIN 14.4 g/dl (12.0-15.5); IMMATURE GRANULOCYTE % 0.5 % (0-3.0); LYMPH % 31.4 % (24.0-44.0); MEAN CORPUSCULAR HEMOGLOBIN 26.9 pg (27.0-33.0); MEAN CORPUSCULAR HGB CONC 31.6 g/dl (32.0-36.5); MEAN CORPUSCULAR VOLUME 84.9 fl (80.0-96.0); MONO # 0.7 10^3/uL (0.0-0.8); MONO % 11.3 % (0.0-5.0); NEUTROPHILS # 3.2 10^3/uL (1.8-7.7); NEUTROPHILS % 50.8 % (36.0-66.0); PLATELET COUNT, AUTOMATED 233 10^3/uL (150-450); RED BLOOD COUNT 5.36 10^6/uL (4.00-5.40); RED CELL DISTRIBUTION WIDTH 16.7 % (11.5-14.5); WHITE BLOOD COUNT 6.3 10^3/uL (4.0-10.0)
[2017-11-26 06:28] LABS: INR 2.19; PROTHROMBIN TIME 24.8 SECONDS (12.1-14.4)
[2017-11-26 06:49] LABS: ANION GAP 11 MEQ/L (8-16); BLOOD UREA NITROGEN 31 MG/DL (7-18); CALCIUM LEVEL 9.1 MG/DL (8.8-10.2); CARBON DIOXIDE LEVEL 31 MEQ/L (21-32); CHLORIDE LEVEL 101 MEQ/L (98-107); CREATININE FOR GFR 0.97 MG/DL (0.55-1.30); GLOMERULAR FILTRATION RATE > 60.0 (>39); GLUCOSE, FASTING 143 MG/DL (70-100); POTASSIUM SERUM 3.4 MEQ/L (3.5-5.1); SODIUM LEVEL 143 MEQ/L (136-145)
[2017-11-26] MEDS: HumaLOG INSULIN (NovoLOG) PER UNIT SC (08:09)
[2017-11-26] MEDS: METOPROLOL TART 25 MG TABLET PO (08:09)
[2017-11-26] MEDS: ASPIRIN 81 MG ENTERIC TAB PO (08:10)
[2017-11-26] MEDS: POTASSIUM CHLORIDE 10 MEQ SR TABLET PO ×2 (08:10)
[2017-11-26] MEDS: SENOKOT S TAB PO (08:10)
[2017-11-26] MEDS: PANTOPRAZOLE 40MG TAB (PROTONIX) PO (08:10)
[2017-11-26] MEDS ORDERED: WARFARIN SOD 5 MG TAB PO (17:00)
== END 2017-11-26 11:30 | disposition home or self-care (01) | DRG 299 ==
LOC: M MS4PR 11-17 15:26 → M MSPAV 11-20 16:46 → M ED 02:35 → M ED INP 06:05 → M PCU 15:21
DX: I82.412 Acute embolism and thrombosis of left femoral vein (principal); I26.99 Other pulmonary embolism without acute cor pulmonale; C34.11 Malignant neoplasm of upper lobe, right bronchus or lung; I82.432 Acute embolism and thrombosis of left popliteal vein; E11.9 Type 2 diabetes mellitus without complications; I48.0 Paroxysmal atrial fibrillation; G47.00 Insomnia, unspecified; I10 Essential (primary) hypertension; I27.29 Other secondary pulmonary hypertension; Z86.718 Personal history of other venous thrombosis and embolism; Z95.0 Presence of cardiac pacemaker; Z90.2 Acquired absence of lung [part of]; Z88.2 Allergy status to sulfonamides; Z88.1 Allergy status to other antibiotic agents; Z88.5 Allergy status to narcotic agent; Z88.6 Allergy status to analgesic agent; Z79.01 Long term (current) use of anticoagulants; Z79.84 Long term (current) use of oral hypoglycemic drugs; Z79.899 Other long term (current) drug therapy; Z79.82 Long term (current) use of aspirin

== ENCOUNTER → 2017-12-07 | Outpatient (CLI) | payer MEDICARE, OTHER | LOC: M SMT 09:12 | DX: C34.11 Malignant neoplasm of upper lobe, right bronchus or lung (principal) | CPT/HCPCS: 71046 ==

== ENCOUNTER → 2017-12-15 | Outpatient (CLI) | payer MEDICARE, OTHER | LOC: M PLARAD 14:26 | DX: C34.11 Malignant neoplasm of upper lobe, right bronchus or lung (principal); J90 Pleural effusion, not elsewhere classified; Z95.0 Presence of cardiac pacemaker | CPT/HCPCS: 78815 ==

== ENCOUNTER → 2017-12-28 | Outpatient (CLI) | payer MEDICARE, OTHER | LOC: M SMT 10:39 | DX: Z48.3 Aftercare following surgery for neoplasm (principal); I51.7 Cardiomegaly | CPT/HCPCS: 71046 ==

== ENCOUNTER → 2018-03-22 | Outpatient (CLI) | payer MEDICARE, OTHER ==
[~2018-03-22] MED LIST changes: -ACETAMINOPHEN 325 MG TAB As Ordered; +ALPR0.25 PO; +AMLO2.5T3 PO; +ASPI1TAB PO; +ASPI325T OR; +ASPI81TAEC PO; +CALTRATE PO; +COUM1TAB17 PO; +CYCL10TA PO; +GARL200T2 PO; +GARL400T2 PO; +GASTROGRAFIN SOLUTION 30ML (Q9963) As Ordered ONE; +ISOVUE-370 76% 100ML VIAL (Q9967) As Ordered ONE; +LANS30TA5 PO; +LEVO25TA5 PO; +LEVO75TA34 PO; -LIDOCAINE 1% MDV 20ML VIAL As Ordered; +LOSA100T5 PO; +LOSARTAN HCTZ PO; +METF500T13 PO; +METO25TA4 PO; +METOPROLOL PO; +OXYC1TAB23 PO; +PERCOCET PO; +POTA10TA16 PO; +PREVACID PO; +SENO8.6T10 PO; +TYLE500T78 PO; +TYLENOL PO; +VIT D PO; +VITA50005 PO; +WARF-22 PO; +WARF-23 PO; +[UNRECOGNIZED DRUG - CODE] PO
--- NOTE | 2018-03-22 20:25 | REP ---
CT study of the chest with IV contrast: History: Stage I non-small cell lung carcinoma. Comparison chest CT study November 12, 2017. October 28, 2017 study is also reviewed. CT contrast dose: 100 mL of intravenous Isovue [address] findings: Pacemaker is noted in the right heart via the left side. There is no evidence of pleural or pericardial effusion. The patient is status post right upper lobectomy. There are mediastinal clips. There is no evidence of mediastinal lymphadenopathy. There are stable right subcarinal and right infrahilar lymph nodes unchanged from October 28, 2017 study. 1.2 cm in short axis dimension. No new lymph nodes are seen. There is mild linear pleuroparenchymal fibrosis in the right base. No new pulmonary nodule or mass lesion is observed. No bony destructive lesion is appreciated. There are healing right lateral rib fractures. No adrenal lesion is observed. Visualized upper abdominal structures are unremarkable. Impression: Status post right upper lobectomy. Stable right infrahilar and subcarinal lymph nodes unchanged. Healing right rib fractures. Otherwise no acute disease. Electronically Signed by Monroe Brown MD 03/22/2018 08:28 P
--- NOTE | 2018-03-22 20:27 | REP ---
CT study of the abdomen pelvis with IV and oral contrast: History: Surveillance for stage I non-small cell lung carcinoma. Comparison PET-CT study December 15, 2017. CT contrast dose: 100 mL of intravenous Isovue [address] findings: The liver and spleen are normal in size. No focal hepatic lesion is seen. There is a small hypervascular nodule in the posterolateral spleen, 0.7 cm in greatest diameter, this is most likely a small splenic hemangioma. It is felt to be unlikely to be a metastatic lesion. It is not evident on CT pulmonary angiogram from November 12, 2017. This is the only prior CT study in the electronic x-ray jacket done with IV contrast. No other splenic or hepatic lesion is seen. No adrenal lesion is observed. No pancreatic abnormality is seen. Scattered upper abdominal normal-sized lymph nodes are seen. No adenopathy. Kidneys enhance symmetrically and morphologically intact. The gallbladder is surgically absent. The uterus is surgically absent. Urinary bladder is empty but unremarkable. Small and large intestinal bowel loops are normal. Normal appendix is seen. Bone window settings show degenerative disc changes. Impression: 0.7 cm presumed splenic hemangioma noted most likely an incidental finding. Otherwise no significant intra-abdominal abnormality. Electronically Signed by Monroe Brown MD 03/23/2018 10:40 A
== END ==
LOC: M RAD 10:00
PROVIDERS: ATTEND Internal Medicine Medical Oncology
DX: C34.90 Malignant neoplasm of unspecified part of unspecified bronchus or lung (principal); Z90.2 Acquired absence of lung [part of]; Z95.0 Presence of cardiac pacemaker; S22.41XD Multiple fractures of ribs, right side, subsequent encounter for fracture with routine healing; X58.XXXD Exposure to other specified factors, subsequent encounter; Y92.9 Unspecified place or not applicable
CPT/HCPCS: 71260; 74177; Q9963; Q9967

== ENCOUNTER → 2018-09-27 | Outpatient (CLI) | payer MEDICARE, OTHER ==
[~2018-09-27] MED LIST changes: -ASPI1TAB PO; +ASPI81TA26 PO; +GNP400TA10 PO
--- NOTE | 2018-09-27 14:41 | REP ---
REASON FOR EXAM: History of lung carcinoma. All priors were reviewed, the latest of which is dated 03/22/2018. CONTRAST: 100 mL Isovue-370. There is no significant change in appearance of the mediastinum or pulmonary joaquin. There are no pleural or pericardial effusions. There is a borderline right subcarinal lymph node, status quo. There is no change in appearance of the imaged upper abdomen or imaged osseous structures. Patient is status post right upper lobectomy. Evaluation of the lung trevino again shows right suprahilar surgical clips, status quo. Asymmetric parenchymal densities are again scattered throughout both lung trevino, status quo. There are no new abnormal nodules, masses, or opacities. IMPRESSION: Stable CT examination of the chest with findings as described above. Electronically Signed by Deep Messina DO 09/27/2018 04:47 P
--- NOTE | 2018-09-27 14:50 | REP ---
REASON: Lung carcinoma. COMPARISON: 03/22/2018 CONTRAST: 100 mL Isovue-370. The liver is unchanged. There is an abnormal caudate to left lobe ratio with a slight micronodular surface to the liver. There are no focal hepatic lesions. Patient is status post cholecystectomy. The spleen is unchanged. The pancreas is somewhat fatty infiltrated, status quo. The adrenal glands and kidneys are again seen to be within normal limits, status quo. The abdominal aorta and para-aortic regions are unchanged. There are a few borderline left para-aortic lymph nodes, status quo. The bowel loops and their mesenteries are essentially unchanged and again seen to be within normal limits. There is no free fluid or free air. No intra-abdominal mass or adenopathy has developed. CT PELVIS: The bowel loops and their mesenteries are again seen to be within normal limits. There are bilateral pelvic phleboliths. There is no evidence of a pelvic mass or adenopathy. Bone window technique throughout the exam shows chronic hip, spinal, and sacroiliac joint degenerative changes, status quo. IMPRESSION: 1. Liver, as described above, potentially representing early cirrhotic features. This needs to be correlated clinically. 2. Pancreatic fatty infiltration, status quo. 3. Borderline retroperitoneal lymph nodes, as described above, without jacques adenopathy or significant change from the prior exam. 4. Other findings as described above. Electronically Signed by Deep Messina DO 09/27/2018 04:47 P
== END ==
LOC: M RAD 10:13
PROVIDERS: ATTEND Internal Medicine Medical Oncology
DX: K86.89 Other specified diseases of pancreas (principal); C34.90 Malignant neoplasm of unspecified part of unspecified bronchus or lung
CPT/HCPCS: 71260; 74177; Q9963; Q9967

== ENCOUNTER → 2018-10-26 | Outpatient (CLI) | payer MEDICARE, OTHER ==
[~2018-10-26] MED LIST changes: -GASTROGRAFIN SOLUTION 30ML (Q9963) As Ordered ONE; -ISOVUE-370 76% 100ML VIAL (Q9967) As Ordered ONE
--- NOTE | 2018-10-26 11:44 | REP ---
Portal vein Doppler ultrasound for for portal hypertension: The main pulmonary vein measures 14.2 mm in diameter. This is normal. The common biliary duct measures 5.6 mm in diameter. This is normal. No hepatic masses are identified. There is no cholelithiasis. There is no ascites. The peak flow velocity in the main portal vein is 27.0 cm/sec. The peak flow velocity in the intrahepatic right portal vein branch is 10.3 cm/sec. In the central intrahepatic portal vein branch is a 8.0 cm/sec. In the left intrahepatic portal vein branch is a 8.5 cm/sec. These measurements are normal. The peak flow velocity in the distal splenic vein is 15.4 cm/sec. This is normal. The proximal splenic vein and proximal superior mesenteric vein are obscured and cannot be visualized. Impression: There is no evidence of portal hypertension. Complete abdominal ultrasound: Comparison is the abdomen and pelvis CT dated 09/27/2018. The the patient reportedly has a cholecystectomy. There is no intrahepatic or extrahepatic biliary duct dilatation. The common biliary duct measures 5.6 mm in diameter. The hepatic parenchyma has a diffusely coarsened echotexture compatible with diffuse hepatocellular disease. No focal hepatic masses are identified. No nodularity of the hepatic surfaces identified by ultrasound. The visualized areas of the pancreas are unremarkable. The spleen is enlarged measuring 12.2 x 5.1 x 11.9 cm for a splenic index of 740. There are nonspecific echogenic foci within the splenic parenchyma, possibly artifact from vasculature. No splenic masses are identified on the comparison CT. The kidneys are normal size. The. The right kidney measures 13.4 x 5.6 of 5.2 cm. The left kidney measures 12.7 x 5.5 x 4.8 cm. There are no solid or cystic renal masses. There are no renal calculi. There is no hydronephrosis. There is no abdominal aortic aneurysm. The proximal abdominal aorta measures 2.5 cm. in diameter. The mid abdominal aorta measures 2.6 cm diameter. The distal abdominal aorta measures 1.7 cm in diameter. There is no ascites. The Impression: The hepatic parenchyma is diffusely coarsened. This is nonspecific but compatible with diffuse hepatocellular disease. There are no focal hepatic masses. No biliary duct dilatation. There is no ascites. The spleen is enlarged. There are nonspecific echogenic foci in the spleen, possibly artifact from vessels. No splenic masses are identified on the comparison CT. Electronically Signed by David Lewis MD 10/26/2018 11:36 A
== END ==
LOC: M RAD 08:35
PROVIDERS: ATTEND Internal Medicine Medical Oncology
DX: C34.90 Malignant neoplasm of unspecified part of unspecified bronchus or lung (principal); K76.89 Other specified diseases of liver; R16.1 Splenomegaly, not elsewhere classified

== ENCOUNTER → 2019-09-27 | Outpatient (CLI) | payer MEDICARE, BC ==
[~2019-09-27] MED LIST changes: +AMLO10TA PO; +CYCL-707 PO; -CYCL10TA PO; +ISOVUE-370 76% 100ML VIAL As Ordered ONE
--- NOTE | 2019-09-27 10:13 | REP ---
Clinical: History small cell carcinoma. Technique: Axial contrast enhanced images from the thoracic inlet to the upper abdomen with coronal and sagittal re-formations using 75 ml Isovue 370 intravenous contrast material. Comparison: 03/25/2019. Findings: Evidence of prior right upper lobectomy and diffuse stable chronic pleuroparenchymal and fibroatelectatic changes similar to prior examination. The no new, acute consolidation, nodule or mass lesion appreciated. No significant effusion. No pneumothorax. Tracheobronchial tree is relatively patent/normal. Mediastinum demonstrates stable appearance to the thoracic aorta, pulmonary vasculature and heart/pericardium including dual lead pacemaker. No significant acute adenopathy. Osseous structures demonstrate age-related changes without acute abnormality. Impression: Evidence of prior right upper lobectomy and diffuse pleuroparenchymal changes stable and without new acute process identified. Electronically Signed by Jaylen Cai MD 09/27/2019 10:05 A
== END ==
LOC: M RAD 09:16
PROVIDERS: ATTEND Internal Medicine Medical Oncology
DX: C34.91 Malignant neoplasm of unspecified part of right bronchus or lung (principal); Z90.2 Acquired absence of lung [part of]
CPT/HCPCS: 71260; Q9967

== ENCOUNTER → 2019-12-16 | Outpatient (CLI) | payer MEDICARE, BC ==
--- NOTE | 2019-12-16 10:17 | REPVR ---
PROCEDURE INFORMATION: Exam: CT Neck With Contrast Exam date and time: 12/16/2019 9:38 AM Age: 74 years old Clinical indication: Cancer; Other: Lung; Additional info: Lung CA. TECHNIQUE: Imaging protocol: Computed tomography images of the neck with intravenous contrast. Radiation optimization: All CT scans at this facility use at least one of these dose optimization techniques: automated exposure control; mA and/or kV adjustment per patient size (includes targeted exams where dose is matched to clinical indication); or iterative reconstruction. Contrast material: ISOVUE 370; Contrast volume: 100 ml; Contrast route: INTRAVENOUS (IV); COMPARISON: No relevant prior studies available. FINDINGS: Nasopharynx: Unremarkable. Oropharynx: There is asymmetric soft tissue fullness at the base of the tongue on the right, with effacement of the right vallecula. A mass in this area cannot be excluded. Hypopharynx: Unremarkable. Larynx: Unremarkable. Normal epiglottis. Retropharyngeal space: Unremarkable. Submandibular/Parotid glands: Normal. Glands are normal in size. Thyroid: Normal. No enlarged or calcified nodules. Lymph nodes: Unremarkable. No lymphadenopathy. Trachea: Visualized trachea is unremarkable. Lungs: Unremarkable as visualized. Bones/joints: Unremarkable. No acute fracture. Soft tissues: See "Oropharynx" finding. Other findings: There is a left-sided pacemaker. IMPRESSION: There is asymmetric soft tissue fullness at the base of the tongue on the right, with effacement of the right vallecula. A mass in this area cannot be excluded. Visual inspection and follow-up postcontrast MRI are recommended. Electronically signed by: Dane Hernández On 12/16/2019 10:17:07 AM
--- NOTE | 2019-12-21 06:48 | REP ---
CT CHEST WITH INTRAVENOUS (IV) CONTRAST HISTORY: Lung carcinoma. Abnormal liver function studies. COMPARISON: Chest CT study 09/27/2019. CT CONTRAST DOSE: 100 mL of intravenous Isovue-[address] FINDINGS: Digital preliminary quickbooks bookkeeper radiograph demonstrates moderate cardiac enlargement with bipolar pacemaker. Axial CT images show no evidence of pleural effusion. There is plural parenchymal fibrosis on the right post right thoracotomy and what appears to be right upper lobectomy. There is mild linear fibrosis in the left base as well. There is some interstitial edema in the dependent portion of the left lower lobe. No pulmonary nodule or mass lesion is observed. There is good opacification of the pulmonary arterial tree and the thoracic aorta. There is no evidence of aortic dissection, aneurysm, or pulmonary embolus. No pleural or pericardial effusion is seen. Normal adrenal glands are seen. IMPRESSION: Status post right upper lobectomy. Moderate cardiac enlargement, mild interstitial changes in the left lower lobe question edema. No effusion. Otherwise no acute disease. MTDD
--- NOTE | 2019-12-21 06:50 | REP ---
RIGHT UPPER QUADRANT ULTRASOUND HISTORY: Abnormal liver function tests. TECHNIQUE: Real-time sonographic evaluation of the right upper quadrant is performed. FINDINGS: The patient has had a prior cholecystectomy. There is no intrahepatic or extrahepatic biliary dilatation. Common bile duct measures 4 mm. Liver demonstrates heterogeneous somewhat increased echotexture diffusely compatible with some degree of fibrofatty infiltration. No liver mass is seen. Pancreas is not seen due to overlying bowel gas. Right kidney demonstrates no hydronephrosis with normal size 13.7 cm in length. There is no ascites. Study is somewhat limited due to patient body habitus. IMPRESSION: Status post cholecystectomy. No biliary dilatation or free fluid. Diffuse fibrofatty infiltration of the liver. MTDD
== END ==
LOC: M RAD 09:01
PROVIDERS: ATTEND Internal Medicine Hematology & Oncology
DX: C34.90 Malignant neoplasm of unspecified part of unspecified bronchus or lung (principal); R94.5 Abnormal results of liver function studies; Z90.49 Acquired absence of other specified parts of digestive tract; Z90.2 Acquired absence of lung [part of]
CPT/HCPCS: 70491; 71260; 76705; Q9967

== ENCOUNTER → 2020-01-30 | Outpatient (CLI) | payer MEDICARE, BC ==
[~2020-01-30] MED LIST changes: -ISOVUE-370 76% 100ML VIAL As Ordered ONE
--- NOTE | 2020-02-01 13:34 | REP ---
INDICATION: RESTAGING RIGHT UPPER LOBE LUNG CANCER METS. COMPARISON: CT-PET 12/15/2017, CT chest 12/16/2019, CT neck 12/16/2019. TECHNIQUE: After the intravenous administration of 8.81 mCi of the FDG 18 triplane whole-body PET-CT was performed from the skull base to the mid thigh. FINDINGS: The patient is status post right upper lobectomy. There is no abnormal hypermetabolic activity seen in the neck, chest, abdomen, or pelvis. IMPRESSION: Negative CT-PET. <Electronically signed by Deep Messina > 02/01/20 [id number]
== END ==
LOC: M PLARAD 11:12
PROVIDERS: ATTEND Internal Medicine Hematology & Oncology
DX: C34.11 Malignant neoplasm of upper lobe, right bronchus or lung (principal); Z90.2 Acquired absence of lung [part of]
CPT/HCPCS: 78815; A9552

== ENCOUNTER → 2020-09-03 | Outpatient (CLI) | payer MEDICARE, BC ==
[~2020-09-03] MED LIST changes: +ASPI-569 PO; -ASPI81TAEC PO; +ERGO500029 PO; +FURO20TA2 PO
--- NOTE | 2020-09-03 15:29 | REP ---
INDICATION: RESTAGING LUNG CANER C34.11. Status post right upper lobectomy. COMPARISON: Comparison is made with CT study of the chest from 16 December 2019 and 28 October 2017.. TECHNIQUE: Fifty-three minutes following the intravenous injection of a 10.42 mCi dose of F-18 FDG, three-dimensional PET scintigraphy is acquired from the skull base to the proximal thighs. Triplanar noncontrast CT scanning is acquired through the same anatomic range for attenuation correction, and image registration with scan parameters optimized to minimize radiation exposure to the patient. PET scintigraphy and CT datasets were fused and displayed on a workstation with multiplanar and projection display capability. FINDINGS: Head and neck soft tissues are unremarkable. No abnormal head and neck uptake is seen. Floor of mouth structures are unremarkable. No cervical adenopathy is seen. There is no abnormal hilar or mediastinal hypermetabolic uptake in the chest. No abnormal pulmonary parenchymal hypermetabolic uptake is seen. Postoperative changes are noted on the right. In the abdomen and pelvis, no abnormal adrenal uptake is seen. Normal hepatic, splenic, gastrointestinal, and genitourinary FDG distribution is seen. No abnormal hypermetabolic uptake is seen in the abdomen or pelvis. No abnormal skeletal uptake is appreciated. IMPRESSION: Negative PET scintigraphy. <Electronically signed by Harry Brown > 09/03/20 [id number]
== END ==
LOC: M PLARAD 08:19
PROVIDERS: ATTEND Internal Medicine Hematology & Oncology
DX: C34.11 Malignant neoplasm of upper lobe, right bronchus or lung (principal)
CPT/HCPCS: 78815; A9552

== ENCOUNTER 2020-11-02 17:14 | Emergency (ER) | payer MEDICARE, BC ==
[~2020-11-02] VITALS: Ht 177.8 cm; Wt 115.9 kg
--- NOTE | 2020-11-02 18:48 | REP ---
INDICATION: pain after twisting and falling COMPARISON: 07/22/2011 TECHNIQUE: AP, lateral, bilateral oblique and sunrise views. FINDINGS: Prior knee replacement with orthopedic hardware in satisfactory stable position. Joint space appears normal. No evidence for acute fracture or dislocation. Arterial vascular calcifications noted. IMPRESSION: No acute fracture or dislocation. <Electronically signed by Jaylen Cai > 11/02/20 [id number]
[2020-11-03 01:50] LABS: VENOUS BASE EXCESS 0.4 (-2.0-2.0); VENOUS HCO3 26.1 MEQ/L (23.0-27.0); VENOUS PARTIAL PRESSURE CO2 45.8 mmHg (38.0-50.0); VENOUS PARTIAL PRESSURE O2 25.9 mmHg (30.0-50.0); VENOUS PH 7.374 UNITS (7.330-7.430); VENOUS STANDARD HCO3 23.6 MEQ/L; VENOUS TOTAL CO2 27.5 MEQ/L (24.0-28.0)
[2020-11-03 01:50] LABS: BASO # 0.1 10^3/uL (0.0-0.2); BASO % 0.5 % (0.0-1.0); EOS # 0.1 10^3/uL (0.0-0.5); EOS % 0.5 % (0.0-3.0); HEMATOCRIT 44.8 % (36.0-47.0); HEMOGLOBIN 14.7 g/dl (12.0-15.5); LYMPH # 1.3 10^3/uL (1.5-5.0); LYMPH % 11.3 % (24.0-44.0); MEAN CORPUSCULAR HEMOGLOBIN 28.6 pg (27.0-33.0); MEAN CORPUSCULAR HGB CONC 32.8 g/dl (32.0-36.5); MEAN CORPUSCULAR VOLUME 87.2 fl (80.0-96.0); MONO % 8.4 % (2.0-8.0); NEUTROPHILS # 9.1 10^3/uL (1.5-8.5); NEUTROPHILS % 78.6 % (36.0-66.0); PLATELET COUNT, AUTOMATED 168 10^3/uL (150-450); RED BLOOD COUNT 5.14 10^6/uL (4.00-5.40); WHITE BLOOD COUNT 11.5 10^3/uL (4.0-10.0)
[2020-11-03 02:01] LABS: INR 3.42; PROTHROMBIN TIME 34.8 SECONDS (12.7-14.5)
[2020-11-03 02:02] LABS: PARTIAL THROMBOPLASTIN TIME 66.5 SECONDS (25.9-37.0)
[2020-11-03 02:09] LABS: D-DIMER QUANT < 270 ng/ml (<500)
[2020-11-03] MEDS ORDERED: ISOVUE-370 76% 100ML VIAL As Ordered ONE (02:18)
--- NOTE | 2020-11-03 02:31 | REPVR ---
PROCEDURE INFORMATION: Exam: XR Chest Exam date and time: 11/03/2020 1:50 AM Age: 74 years old Clinical indication: Other: SOB TECHNIQUE: Imaging protocol: XR of the chest. Views: 2 views. COMPARISON: 1. CT Chest with contrast 2019-12-16 09:[address] Chest with contrast 2019-09-27 09:[address] Chest with contrast 2019-03-25 11:[address] ANGIO CHEST 2017-11-12 04:10 FINDINGS: Limitations: Artifact related to patient's arm position limits evaluation. Tubes, catheters and devices: AICD/Pacemaker device is present, and its leads are in appropriate position. Lungs: Dependent subsegmental pulmonary atelectasis. Pleural spaces: Unremarkable. No pleural effusion. No pneumothorax. Heart/Mediastinum: Cardiac enlargement. Bones/joints: Unremarkable. IMPRESSION: Dependent subsegmental pulmonary atelectasis. Electronically signed by: Austin Wiledr On 11/03/2020 02:30:48 AM
[2020-11-03 02:32] LABS: ALBUMIN 3.4 GM/DL (3.2-5.2); ALT/SGPT 26 U/L (12-78); BILIRUBIN,DIRECT 0.2 MG/DL (0.0-0.2); BILIRUBIN,TOTAL 1.1 MG/DL (0.2-1.0); LIPASE 28 U/L (73-393); NT-PRO BNP 1846 PG/ML (<125); TOTAL PROTEIN 7.5 GM/DL (6.4-8.2)
--- NOTE | 2020-11-03 03:22 | REPVR ---
PROCEDURE INFORMATION: Exam: CT Head Without Contrast Exam date and time: 11/03/2020 2:44 AM Age: 74 years old Clinical indication: Other: Weakness TECHNIQUE: Imaging protocol: Computed tomography of the head without contrast. Radiation optimization: All CT scans at this facility use at least one of these dose optimization techniques: automated exposure control; mA and/or kV adjustment per patient size (includes targeted exams where dose is matched to clinical indication); or iterative reconstruction. COMPARISON: 1. PT PET/CT Skull/mid thigh 2020-09-03 09:51 2. PT PET/CT Skull/mid thigh 2020-01-30 13:12 FINDINGS: Brain: Diffuse moderate cerebral age related volume loss. Moderate patchy low attenuation in the white matter compatible with moderate chronic small vessel ischemic disease. No midline shift, mass, fluid collection, or evidence of hemorrhage. Cerebral ventricles: Ventricular enlargement proportional to volume loss. Paranasal sinuses: Visualized sinuses are unremarkable. No fluid levels. Mastoid air cells: Visualized mastoid air cells are well aerated. Bones/joints: Unremarkable. No acute fracture. Soft tissues: Unremarkable. IMPRESSION: Moderate involutional changes, no acute intracranial abnormality. Electronically signed by: Austin Wilder On 11/03/2020 03:21:40 AM
[2020-11-03] MEDS ORDERED: FURO40TA2 (03:34)
[2020-11-03 03:52] LABS: RSV AMPLIFICATION NEGATIVE (NEGATIVE)
--- NOTE | 2020-11-03 03:53 | REPVR ---
PROCEDURE INFORMATION: Exam: CTA Chest with Contrast Exam date and time: 11/03/20 (2:29am) Age: 74 years old Clinical indication: SOB. S/P RUL lobectomy due to cancer. TECHNIQUE: Imaging protocol: Computed tomographic angiography of the chest with contrast. 3D rendering (Not supervised by radiologist): MIP and/or 3D reconstructed images were created by the technologist. Radiation optimization: All CT scans at this facility use at least one of these dose optimization techniques: automated exposure control; mA and/or kV adjustment per patient size (includes targeted exams where dose is matched to clinical indication); or iterative reconstruction. Contrast material: Isovue 370 Contrast volume: 75 ml Contrast route: IV COMPARISON: CTA CHEST of 11/12/17 FINDINGS: Pulmonary arteries: Normal. No pulmonary emboli. Aorta: Unremarkable. No aortic aneurysm. No aortic dissection. Lungs: Hazy lung bases (perhaps hypoventilatory changes, eg). No consolidation. No masses. Pleural spaces: Unremarkable. No pneumothorax. No pleural effusion. Heart: Stable cardiomegaly. No pericardial effusion. Cardiac electrodes in place. Lymph nodes: Unremarkable. No enlarged lymph nodes. Bones/joints: No acute fracture. Multilevel degenerative thoracic spine changes. Soft tissues: Unremarkable. Upper abdomen: Prominent spleen (unchanged). IMPRESSION: No acute findings. No filling defects suspicious for pulmonary emboli are seen. There is no CT evidence of aortic dissection nor leakage. No aortic aneurysm is appreciated. Stable cardiomegaly. Cardiac electrodes in place. Electronically signed by: Karoline Pérez On 11/03/2020 03:53:29 AM
[2020-11-03 04:04] LABS: CK-MB VALUE MASS < 1.0 NG/ML (<3.6); CPK CREATINE PHOSPHOKINASE 101 U/L (26-192); MB/CK RELATIVE INDEX 0.99 (< OR =4); TROPONIN I < 0.02 NG/ML (< 0.10)
[2020-11-03 05:45] VITALS: BP 129/75
--- NOTE | 2020-11-03 20:17 | ECGEPIP ---
[facility] - ED Test Date: 2020-11-03 Pat Name: ROHIT SUTTON Department: Room: - Gender: Female Chemistry Quality Control Analyst: SB : 1945 Requested By: JANAK Capps PA-C Order Number: [id number] Reading MD: Austin Snowden Measurements Intervals [place] Rate: 67 P: PA: QRS: 140 QRSD: 176 T: -48 QT: 504 QTc: 532 Interpretive Statements Ventricular-paced rhythm with occasional premature ventricular complexes underlying rhythm appears to be atrial flutter previous tracing done 11-12-17 showed atrial fibrillation without pacing Electronically Signed on 11-03-2020 20:16:50 EDT by Austin Snowden
== END 2020-11-03 05:48 | disposition home or self-care (01) ==
LOC: M ED 17:14
DX: S89.91XA Unspecified injury of right lower leg, initial encounter (principal); X50.0XXA Overexertion from strenuous movement or load, initial encounter; Y92.009 Unspecified place in unspecified non-institutional (private) residence as the place of occurrence of the external cause; Y93.9 Activity, unspecified; Y99.9 Unspecified external cause status; J98.11 Atelectasis; C34.11 Malignant neoplasm of upper lobe, right bronchus or lung; Z90.2 Acquired absence of lung [part of]; I48.91 Unspecified atrial fibrillation; I51.7 Cardiomegaly; I50.9 Heart failure, unspecified; K21.9 Gastro-esophageal reflux disease without esophagitis; E03.9 Hypothyroidism, unspecified; Z95.0 Presence of cardiac pacemaker; Z79.899 Other long term (current) drug therapy; Z88.8 Allergy status to other drugs, medicaments and biological substances; Z88.5 Allergy status to narcotic agent; Z79.01 Long term (current) use of anticoagulants
CPT/HCPCS: 36415; 70450; 71046; 71275; 73564; 80047; 80076; 81001; 82550; 82553; 82803; 83690; 83880; 84484; 85025; 85379; 85610; 85730; 87088; 87186; 87631; 93005; 99284; Q9967